=== PATIENT | female | born 1970 | race Caucasian/White ===

== ENCOUNTER → 2023-08-14 12:58 | Outpatient (REF) | payer BC, SELFPAY ==
[2023-08-14 16:00] LABS: Magnesium 2.3 mg/dl (1.6-2.3)
[2023-08-14 16:17] LABS: Vitamin D, 25-OH*** 41.6 ng/mL (30-80)
[2023-08-14 16:50] LABS: Vitamin B12 441 pg/ml (239-931)
== END ==
LOC: HWLAB 12:58
PROVIDERS: ATTENDING PHYSICIAN Physician Assistant Medical
DX: R53.83 Other fatigue (principal)
CPT/HCPCS: 36415; 82306; 82607; 83735

== ENCOUNTER → 2023-10-09 07:51 | Outpatient (REF) | payer BC, SELFPAY ==
[2023-10-09 09:20] LABS: % Eosinophils 3.7 % (0-6); % Immature Granulocytes 0.3 % (0-0.5); % Monocytes 6.9 % (1.7-9.3); % Neutrophils 58.1 % (42.2-75.2); Absolute Basophils 0.1 10^3/uL (0-0.2); Absolute Eosinophils 0.3 10^3/uL (0-0.7); Absolute Lymphocytes 2.6 10^3/uL (1.2-3.4); Absolute Monocytes 0.6 10^3/uL (0.1-0.6); Hematocrit 41.3 % (37.0-47.0); Hemoglobin 12.8 g/dL (12.0-16.0); Mean Corpuscular Hgb 27.1 pg (27.0-31.0); Mean Corpuscular Volume 87.3 fL (81.0-99.0); Nucleated Red Blood Cells % 0 %; Platelet Count 315 10^3/uL (130-400); Red Blood Cell Count 4.73 10^6/uL (4.20-5.40); Red Cell Dist. Width 13.8 % (11.5-14.5); White Blood Cell Count 8.7 10^3/uL (4.8-10.8)
[2023-10-09 10:13] LABS: ALT (SGPT) 22 U/L (0-35); AST (SGOT) 18 U/L (14-36); Albumin 4.4 g/dl (3.5-5.0); Alkaline Phosphatase 69 U/L (38-126); Blood Urea Nitrogen 25 mg/dl (7-17); Carbon Dioxide 29 mmol/L (22-30); Chloride 102 mmol/L (98-107); Glucose 245 mg/dl (70-99); HDL Cholesterol 49 mg/dl; LDL Cholesterol, Calculated 149 mg/dl; Potassium 4.5 mmol/L (3.5-5.1); Sodium 138 mmol/L (135-145); Total Bilirubin 0.5 mg/dl (0.2-1.3); Total Cholesterol 234 mg/dl (50-199); Total Protein 7.4 g/dl (6.3-8.2); Triglyceride 184 mg/dl (10-149); Very Low Density Lipoprotein 36 mg/dl (0-30); eGFR > 60.00
[2023-10-09 15:04] LABS: TSH 1.88 uIU/ml (0.47-4.68)
== END ==
LOC: REG 07:51
PROVIDERS: ATTENDING PHYSICIAN Internal Medicine Cardiovascular Disease; FAMILY PHYSICIAN Physician Assistant Medical
DX: E78.5 Hyperlipidemia, unspecified (principal); G47.33 Obstructive sleep apnea (adult) (pediatric); E11.9 Type 2 diabetes mellitus without complications
CPT/HCPCS: 36415; 80053; 80061; 83036; 84443; 85025

== ENCOUNTER 2023-11-17 09:36 | Emergency (ER) | payer BC, SELFPAY ==
[2023-11-17 09:37] VITALS: BP 114/74
--- NOTE | 2023-11-17 10:12 | ED.GENMED ---
History of Present Illness
<Abraham May PA-C - Last Filed: 11/17/23 12:24>
General
Chief Complaint: Headache
Source: patient
Exam Limitations: none
Time Seen by Provider: 11/17/23 10:07
History of Present Illness
History of Present Illness:
53-year-old female with history of migraines presents with ongoing headache over the past 2 to 3 days. Its intermittent and gradual in onset. There is associated paresthesias of her face and her arm mainly the left side but occasionally on the
right. No fever. She notes bilateral blurry vision and difficulty hearing as well. No rash. No chest pain. She was admitted several months ago here for similar symptoms and thought to have a TIA. No injury. She does not describe a sudden
onset severe headache. She tried Maxalt at home without relief
<Yahir Means MD - Last Filed: >
Travel History
Have you had any contact with someone who has COVID-19?: No
Do you have any symptoms of coronavirus? Fever > 100 degrees, chills, cough, shortness of breath, sore throat, loss of taste or smell, muscle aches, or headache?: No
Past History
<Yahir Means MD - Last Filed: >
Past History
ED Past Medical History: Asthma, GERD, Hypercholesterolemia, NIDDM, Psychiatric (depression) and Other (Palpitations, migraines, sciatica)
ED Past Surgical History: Cholecystectomy
Social History
Tobacco: Former smoker
Alcohol: None
Drug: None
Personal:
Living: with family
Employment: Employed
Family History
Family History: Hypertension, CAD and Other (SLE)
Phy Exam
<Abraham May PA-C - Last Filed: 11/17/23 12:24>
Physical Exam
Physical Exam:
General: Well-appearing female no acute respiratory distress
HEENT: Normocephalic atraumatic pupils equal round reactive to light external auditory canal is clear TMs normal
Heart: Regular rate and rhythm no murmurs
Lungs: Clear to auscultation bilaterally no wheezing
Neurologic exam: Alert and oriented x 3 no drift finger-nose intact extraocular motions intact. No facial asymmetry
Extremities: No cyanosis
Course
<Abraham May PA-C - Last Filed: 11/17/23 12:24>
Orders/Labs/Results
Orders:
Orders
11/17/23 09:43
Electrocardiogram (*1) Urgent
Reason for Study: Chest Pain
EKG- Treatment ONCE
11/17/23 10:17
CT Head W/o Iv Contrast Urgent
Comment:
Reason For Exam: headache, left sided weakness
11/17/23 10:35
0.9% Sodium Chloride 1000 ml [Nss] 1,000 ml IV BOLUS
Diphenhydramine [Benadryl] 25 mg IV NOW STA
Ketorolac [Toradol] 15 mg IV NOW STA
Prochlorperazine [Compazine] 10 mg IV NOW STA
11/17/23 11:00
Complete Blood Count/With Diff Urgent
Comprehensive Metabolic Panel Urgent
Lyme Progressive Urgent
Abnormal Lab Results
11/17/23
11:00
Absolute Monos (auto) 0.7 H 10^3/uL
(0.1-0.6)
Creatinine 0.5 L mg/dL
(0.6-1.0)
Glucose 124 H mg/dl
(70-99)
11/17/23 11:00
11/17/23 11:00
Vital Signs
Initial and Last Documented VS:
Initial Vital Signs
Temp Pulse Resp BP Pulse Ox
98.8 F 75 20 114/74 99
11/17/23 09:37 11/17/23 09:37 11/17/23 09:37 11/17/23 09:37 11/17/23 09:37
Last Documented Vital Signs
Temp Pulse Resp BP Pulse Ox
98.8 F 75 20 114/74 96
11/17/23 09:37 11/17/23 09:37 11/17/23 09:37 11/17/23 09:37 11/17/23 10:47
<Yahir Means MD - Last Filed: >
Orders/Labs/Results
Orders:
Orders
11/17/23 09:43
Electrocardiogram (*1) Urgent
Reason for Study: Chest Pain
EKG- Treatment ONCE
11/17/23 10:17
CT Head W/o Iv Contrast Urgent
Comment:
Reason For Exam: headache, left sided weakness
11/17/23 10:35
0.9% Sodium Chloride 1000 ml [Nss] 1,000 ml IV BOLUS
Diphenhydramine [Benadryl] 25 mg IV NOW STA
Ketorolac [Toradol] 15 mg IV NOW STA
Prochlorperazine [Compazine] 10 mg IV NOW STA
11/17/23 11:00
Complete Blood Count/With Diff Urgent
Comprehensive Metabolic Panel Urgent
Lyme Progressive Urgent
Abnormal Lab Results
11/17/23
11:00
Absolute Monos (auto) 0.7 H 10^3/uL
(0.1-0.6)
Creatinine 0.5 L mg/dL
(0.6-1.0)
Glucose 124 H mg/dl
(70-99)
11/17/23 11:00
11/17/23 11:00
Vital Signs
Initial and Last Documented VS:
Initial Vital Signs
Temp Pulse Resp BP Pulse Ox
98.8 F 75 20 114/74 99
11/17/23 09:37 11/17/23 09:37 11/17/23 09:37 11/17/23 09:37 11/17/23 09:37
Last Documented Vital Signs
Temp Pulse Resp BP Pulse Ox
98.8 F 75 20 114/74 96
11/17/23 09:37 11/17/23 09:37 11/17/23 09:37 11/17/23 09:37 11/17/23 10:47
<Abraham May PA-C - Last Filed: 11/17/23 12:24>
MDM/Problems Addressed
Differential Diagnosis Includes:
Headache. History of migraines. Some of this feels similar to her prior migraines. She does not describe a sudden onset headache. Will treat for migraine with Compazine Benadryl Toradol and fluids. Labs pending. Order CT secondary to the
paresthesias.
<Abraham May PA-C - Last Filed: 11/17/23 12:24>
*Critical Care Note
Total Time (30-74mins, 75-104mins- exclusive of procedures): Not Applicable
<Abraham May PA-C - Last Filed: 11/17/23 12:24>
Update Note
Update Note:
Patient noted with improvement of her headache. She is now resting comfortably. States her headache is improved. Labs reviewed without significant finding. CT head negative. Suspect migraine variant. Do not suspect CVA or intracranial
hemorrhage
ED Attending Note
<Yahir Means MD - Last Filed: >
-
Portions of this chart may have been created with voice recognition software.� Occasional wrong word or��sound alike� substitutions may have occurred due to the inherent limitations of voice recognition software.
Discharge Plan
Departure
Patient Disposition: Home (Routine Discharge)
Date of Disposition: 11/17/23
Time of Disposition: 12:23
Patient with high blood pressure during this ER visit?: No
Discharge Problem:
Headache
Instructions: Migraines (DC)
Prescriptions:
No Action
esomeprazole magnesium [Nexium] 40 MG capsule,delayed release(DR/EC)
40 mg PO QPM
furosemide [Lasix] 40 MG tablet
40 mg PO BID
levocetirizine [Xyzal] 5 MG tablet
5 mg PO QPM
montelukast [Singulair] 10 mg Tablet
10 mg PO QPM
lisinopril 5 mg Tablet
5 mg PO DAILY
insulin glargine [Lantus Solostar U-100 Insulin] 100 unit/mL (3 mL) Insulin Pen
25 unit SC QPM
fluticasone propion-salmeterol [Advair Diskus] 250-50 mcg/dose Blister With Device
1 inh INHALATION R BID
rizatriptan 10 mg Tablet
10 mg PO DAILYPRN PRN (Reason: migraines)
ondansetron 8 mg Tablet,Disintegrating
8 mg PO Q8HPRN PRN (Reason: nausea/vomiting)
pravastatin 80 mg Tablet
80 mg PO QPM
Visbiome 112.5 billion cell Capsule
1 cap PO DAILY
venlafaxine 225 mg Tablet Extended Release 24hr
225 mg PO DAILY
Victoza 2-Eddie 0.6 mg/0.1 mL (18 mg/3 mL) Pen Injector
1.2 mg SC DAILY
Trudhesa 0.725 mg/pump act. (4 mg/mL) Thomas,Non-Aerosol
1 spray INTRANASAL DAILYPRN PRN (Reason: migraine headaches)
Qulipta 60 mg Tablet
60 mg PO QPM
Farxiga 10 mg Tablet
10 mg PO DAILY
lorazepam 0.5 mg Tablet
0.5 mg PO DAILYPRN PRN (Reason: anxiety)
Patient Comments:
05/31/2023: last filled 05/29/23, 14 tabs [facility]
albuterol sulfate 90 mcg/actuation Hfa Aerosol Inhaler
2 puff INHALATION R Q4HPRN PRN (Reason: sob/wheezing)
cholecalciferol (vitamin D3) [Vitamin D3] 125 mcg (5,000 unit) Tablet
125 mcg PO DAILY
aspirin [Children's Aspirin] 81 mg Tablet,Chewable
81 mg PO DAILY 30 Days Qty: 30 0RF
Referrals:
Lisette Owens PA-C [Family Provider] -
Stand Alone Forms: Return to Work
Activity Restrictions/Additional Instructions:
Please continue current medication regimen. Return here for worsening symptoms otherwise follow-up with your family doctor
Interventions
Interventions:
*Risk Screen - Suicide Last Done: 11/17/23 09:37
*General Assessment Last Done: 11/17/23 09:37
*Neglect/Abuse Screening Last Done: 11/17/23 09:37
ED- Fall Risk Assessment Last Done: 11/17/23 10:47
*ED COVID-19 Vaccine History Last Done: 11/17/23 10:59
ED- Neurological Assessment Last Done: 11/17/23 10:47
Discharge Date and Time
Print Language: CHINESE
[2023-11-17 10:47] VITALS: BMI 42.9
[2023-11-17 11:00] VITALS: BP 122/69
[2023-11-17] MEDS: COMPAZINE 10 MG IV (11:04)
[2023-11-17] MEDS: BENADRYL 25 MG IV (11:04)
[2023-11-17] MEDS: NSS 1000 IV (11:05)
[2023-11-17] MEDS: TORADOL 15 MG IV (11:05)
[2023-11-17 11:07] LABS: % Basophils 0.7 % (0-2); % Eosinophils 2.5 % (0-6); % Immature Granulocytes 0.2 % (0-0.5); % Lymphocytes 28.7 % (20.5-51.1); % Monocytes 8.2 % (1.7-9.3); % Neutrophils 59.7 % (42.2-75.2); Absolute Basophils 0.1 10^3/uL (0-0.2); Absolute Eosinophils 0.2 10^3/uL (0-0.7); Absolute Lymphocytes 2.6 10^3/uL (1.2-3.4); Absolute Monocytes 0.7 10^3/uL (0.1-0.6); Absolute Neutrophils 5.4 10^3/uL (1.4-6.5); Hematocrit 37.9 % (37.0-47.0); Hemoglobin 12.9 g/dL (12.0-16.0); Mean Corpuscular Hgb 27.7 pg (27.0-31.0); Mean Corpuscular Volume 81.3 fL (81.0-99.0); Mean Platelet Volume 9.1 fL (7.4-10.4); Nucleated Red Blood Cells % 0 %; Platelet Count 312 10^3/uL (130-400); Red Blood Cell Count 4.66 10^6/uL (4.20-5.40); Red Cell Dist. Width 14.2 % (11.5-14.5)
[2023-11-17 11:26] LABS: ALT (SGPT) 28 U/L (0-35); AST (SGOT) 25 U/L (14-36); Albumin 4.1 g/dl (3.5-5.0); Alkaline Phosphatase 63 U/L (38-126); Blood Urea Nitrogen 15 mg/dl (7-17); Calcium 9.6 mg/dl (8.4-10.2); Carbon Dioxide 29 mmol/L (22-30); Chloride 101 mmol/L (98-107); Estimated Creatinine Clearance > 125 ml/min; Glucose 124 mg/dl (70-99); Potassium 3.7 mmol/L (3.5-5.1); Sodium 135 mmol/L (135-145); Total Bilirubin 0.4 mg/dl (0.2-1.3); Total Protein 6.9 g/dl (6.3-8.2); eGFR > 60.00
[2023-11-17 12:49] VITALS: BP 108/67
--- NOTE | 2023-11-17 12:52 | EDRN ---
Reviewed discharge instructions with patient. Verbalized understanding. Ambulated with steady gait to the lobby.
[2023-11-19 15:03] LABS: Lyme Antibody Screen, EIA Negative (Negative)
== END 2023-11-17 12:50 | disposition home or self-care (01) ==
LOC: EMR 09:36
PROVIDERS: Physician Assistant; EMERGENCY PHYSICIAN Emergency Medicine; FAMILY PHYSICIAN Physician Assistant Medical
DX: R51.9 Headache, unspecified (principal)
CPT/HCPCS: 99284; 96374; 96375; 96361; 70450; 80053; 85025; 86618; 93005

== ENCOUNTER → 2023-11-19 12:39 | Outpatient (REF) | payer BC, SELFPAY | LOC: RAD 12:39 | PROVIDERS: ATTENDING PHYSICIAN Physician Assistant Medical | DX: M25.572 Pain in left ankle and joints of left foot (principal) | CPT/HCPCS: 73610 ==

== ENCOUNTER → 2023-12-24 07:34 | Outpatient (REF) | payer BC, SELFPAY ==
[2023-12-24 09:58] LABS: % Eosinophils 3.1 % (0-6); % Immature Granulocytes 0.1 % (0-0.5); % Lymphocytes 33.9 % (20.5-51.1); % Monocytes 7.2 % (1.7-9.3); % Neutrophils 54.7 % (42.2-75.2); Absolute Basophils 0.1 10^3/uL (0-0.2); Absolute Eosinophils 0.3 10^3/uL (0-0.7); Absolute Lymphocytes 2.7 10^3/uL (1.2-3.4); Absolute Monocytes 0.6 10^3/uL (0.1-0.6); Absolute Neutrophils 4.4 10^3/uL (1.4-6.5); Hematocrit 38.6 % (37.0-47.0); Hemoglobin 12.4 g/dL (12.0-16.0); Mean Corp Hgb Conc. 32.1 g/dL (33.0-37.0); Mean Corpuscular Hgb 27.7 pg (27.0-31.0); Mean Corpuscular Volume 86.2 fL (81.0-99.0); Mean Platelet Volume 9.7 fL (7.4-10.4); Nucleated Red Blood Cells % 0 %; Platelet Count 327 10^3/uL (130-400); Red Blood Cell Count 4.48 10^6/uL (4.20-5.40); Red Cell Dist. Width 14.5 % (11.5-14.5); White Blood Cell Count 8.1 10^3/uL (4.8-10.8)
[2023-12-24 10:47] LABS: ALT (SGPT) 23 U/L (0-35); AST (SGOT) 20 U/L (14-36); Albumin 4.3 g/dl (3.5-5.0); Alkaline Phosphatase 62 U/L (38-126); Blood Urea Nitrogen 18 mg/dl (7-17); Calcium 9.7 mg/dl (8.4-10.2); Carbon Dioxide 28 mmol/L (22-30); Chloride 101 mmol/L (98-107); Glucose 208 mg/dl (70-99); Potassium 4.3 mmol/L (3.5-5.1); Sodium 140 mmol/L (135-145); Total Bilirubin 0.4 mg/dl (0.2-1.3); eGFR > 60.00
[2023-12-24 12:52] LABS: Glycohemoglobin (HgbA1c) 7.5 % (4.0-5.6)
== END ==
LOC: HWLAB 07:34
PROVIDERS: ATTENDING PHYSICIAN Physician Assistant Medical
DX: R07.81 Pleurodynia (principal); R73.09 Other abnormal glucose
CPT/HCPCS: 36415; 71101; 80053; 83036; 85025

== ENCOUNTER → 2024-01-27 08:03 | Outpatient (REF) | payer BC, SELFPAY ==
[2024-01-27 09:57] LABS: HDL Cholesterol 53 mg/dl; LDL Cholesterol, Calculated 103 mg/dl; Total Cholesterol 195 mg/dl (50-199); Triglyceride 195 mg/dl (10-149); Very Low Density Lipoprotein 39 mg/dl (0-30)
== END ==
LOC: REG 08:03
PROVIDERS: ATTENDING PHYSICIAN Physician Assistant Medical; FAMILY PHYSICIAN Internal Medicine Cardiovascular Disease
DX: R07.81 Pleurodynia (principal)
CPT/HCPCS: 36415; 80061

== ENCOUNTER → 2024-02-13 10:53 | Outpatient (REF) | payer BC, SELFPAY ==
[2024-02-13 12:27] LABS: Urine Albumin Negative (Neg - Trace); Urine Bilirubin Negative (Negative); Urine Character Clear (Clear); Urine Color Yellow; Urine Glucose 3+ (Negative); Urine Ketone Negative (Negative); Urine Leukocyte Trace (Negative); Urine Nitrite Negative (Negative); Urine Occult Blood Negative (Negative); Urine Specific Gravity 1.005 (<1.030); Urine Urobilinogen Negative (Neg - 1+)
[2024-02-13 12:57] LABS: Urine Bacteria Few (Negative); Urine Red Blood Cell 0-2 /HPF (0-2); Urine Squamous Cell 21-25 /LPF (Few); Urine White Cell 0-2 /HPF (0-5)
== END ==
LOC: REG 10:53
PROVIDERS: ATTENDING PHYSICIAN Student in an Organized Health Care Education/Training Program
DX: R10.2 Pelvic and perineal pain (principal)
CPT/HCPCS: 81003; 81015

== ENCOUNTER 2024-04-04 18:59 | Emergency (ER) | payer BC, SELFPAY ==
[2024-04-04 19:02] VITALS: BP 146/100
[2024-04-04 19:23] LABS: Urine Albumin Negative (Neg - Trace); Urine Bilirubin Negative (Negative); Urine Character Clear (Clear); Urine Color Yellow; Urine Glucose 3+ (Negative); Urine Ketone Negative (Negative); Urine Leukocyte Negative (Negative); Urine Nitrite Negative (Negative); Urine Occult Blood Negative (Negative); Urine Specific Gravity 1.015 (<1.030); Urine Urobilinogen Negative (Neg - 1+); Urine pH 6.5 (5.0-9.0)
[2024-04-04 19:26] LABS: Hematocrit 36.6 % (37.0-47.0); Hemoglobin 12.5 g/dL (12.0-16.0); Mean Corp Hgb Conc. 34.2 g/dL (33.0-37.0); Mean Corpuscular Hgb 28.1 pg (27.0-31.0); Mean Corpuscular Volume 82.2 fL (81.0-99.0); Mean Platelet Volume 9.3 fL (7.4-10.4); Platelet Count 300 10^3/uL (130-400); Red Blood Cell Count 4.45 10^6/uL (4.20-5.40); Red Cell Dist. Width 13.6 % (11.5-14.5); White Blood Cell Count 9.7 10^3/uL (4.8-10.8)
[2024-04-04 19:42] LABS: ALT (SGPT) 21 U/L (0-35); AST (SGOT) 21 U/L (14-36); Albumin 4.4 g/dl (3.5-5.0); Alkaline Phosphatase 66 U/L (38-126); Blood Urea Nitrogen 19 mg/dl (7-17); Calcium 9.3 mg/dl (8.4-10.2); Carbon Dioxide 28 mmol/L (22-30); Chloride 101 mmol/L (98-107); Glucose 191 mg/dl (70-99); Potassium 3.9 mmol/L (3.5-5.1); Sodium 142 mmol/L (135-145); Total Bilirubin 0.3 mg/dl (0.2-1.3); Total Protein 6.9 g/dl (6.3-8.2); eGFR > 60.00
[2024-04-04 19:43] LABS: % Basophils 0.8 % (0-2); % Eosinophils 2.1 % (0-6); % Immature Granulocytes 0.3 % (0-0.5); % Lymphocytes 33.5 % (20.5-51.1); % Monocytes 7.6 % (1.7-9.3); % Neutrophils 55.7 % (42.2-75.2); Absolute Basophils 0.1 10^3/uL (0-0.2); Absolute Eosinophils 0.2 10^3/uL (0-0.7); Absolute Lymphocytes 3.3 10^3/uL (1.2-3.4); Absolute Monocytes 0.7 10^3/uL (0.1-0.6); Absolute Neutrophils 5.4 10^3/uL (1.4-6.5); Nucleated Red Blood Cells % 0 %
--- NOTE | 2024-04-04 20:01 | ED.GENMED ---
History of Present Illness
General
Chief Complaint: Urinary Symptoms
Time Seen by Provider: 04/04/24 20:01
History of Present Illness
History of Present Illness:
HPI: Patient presents with intermittent UTI type of symptoms over the past month. Today she had increased vomiting, back pain. Pain in the back worsens with position changes. The nausea and vomiting is not necessarily new. He has Zofran at home.
She currently does not have nausea. The back pain is described as the left side near the left kidney area/left flank area.
EXAM:
GENERAL: Well appearing in no distress, elevated BMI noted
HEENT: Moist oral mucosa
CARDIOVASCULAR: No murmurs, normal heart rate on my examination but arrived slightly tachycardic, regular rhythm, No chest wall tenderness
PULMONARY: No respiratory distress, breath sounds are clear and equal
ABDOMEN: Soft with no peritoneal signs, no tenderness
BACK: There is no significant CVA tenderness
NEUROLOGIC: Excellent strength all extremities, no coordination deficits
PSYCHIATRIC: Appropriate mental status, normal insight and judgement
EXTREMITIES: Nontender, no edema, moves all extremities equally
SKIN: No rash, no lesions
TIME OF INITIAL ENCOUNTER: 8:10 PM
NUMBER AND COMPLEXITY OF PROBLEMS ADDRESSED AT THE ENCOUNTER
� Chronic conditions affecting care: Back pain, migraines, asthma, GERD, hyperlipidemia, IDDM, anxiety/depression
� Acute Exacerbation and/or Progression of Chronic Illness: This is an acute problem
� Differential Diagnosis includes: Poorly controlled diabetes, UTI, pyelonephritis
AMOUNT AND/OR COMPLEXITY OF DATA TO BE REVIEWED AND ANALYZED
� I performed an independent evaluation of and my interpretation is:
EKG:
CT:
X-rays:
Laboratory Studies: White count 9.7, chemistries unremarkable except for glucose of 191, urinalysis shows glucose but no evidence of infection
Other:
� Review of other/old records: The patient was admitted here 1 year ago with chest pain/shortness of breath along with increasing confusion
� Clinical information was obtained by an independent historian: None needed
� Prescriptions/Medications Considered but not given:
� Further testing considered but not performed: Considered imaging however the patient's pain is most consistent with musculoskeletal etiology and she appears comfortable
RISK OF COMPLICATIONS AND/OR MORBIDITY OR MORTALITY OF PATIENT MANAGEMENT
� Social determinants of health affecting care: Lives at home
� Discussion with other providers:
� Escalation of care including admission/observation vs risk of discharge considered: The patient symptoms of '[place]', urinary frequency, thirst are more likely consistent with poorly controlled diabetes. There is no
evidence of infection currently. Work note also given at her request. I have told her to increase the Lantus from 30 units to 34 units nightly and to speak to her education nurse tomorrow.
Past History
Past History
ED Past Medical History: Asthma, GERD, Hypercholesterolemia, NIDDM, Psychiatric (depression) and Other (Palpitations, migraines, sciatica)
ED Past Surgical History: Cholecystectomy
Social History
Tobacco: Former smoker
Alcohol: None
Drug: None
Personal:
Living: with family
Employment: Employed
Family History
Family History: Hypertension, CAD and Other (SLE)
Phy Exam
Physical Exam
Physical Exam:
See HPI
Course
Orders/Labs/Results
Orders:
Orders
04/04/24 19:05
Urinalysis Reflex To Culture Urgent
Date Specimen was Collected: 04/04/24
Time Specimen was Collected: 19:06
04/04/24 19:10
Complete Blood Count/With Diff Urgent
Comprehensive Metabolic Panel Urgent
Abnormal Lab Results
04/04/24 04/04/24
19:05 19:10
Hct 36.6 L %
(37.0-47.0)
Absolute Monos (auto) 0.7 H 10^3/uL
(0.1-0.6)
BUN 19 H mg/dl
(7-17)
Glucose 191 H mg/dl
(70-99)
Urine Glucose 3+ A
(Negative)
04/04/24 19:10
04/04/24 19:10
Vital Signs
Initial and Last Documented VS:
Initial Vital Signs
Temp Pulse Resp BP Pulse Ox
98.3 F 104 22 146/100 98
04/04/24 19:02 04/04/24 19:02 04/04/24 19:02 04/04/24 19:02 04/04/24 19:02
Last Documented Vital Signs
Temp Pulse Resp BP Pulse Ox
98.3 F 104 22 146/100 98
04/04/24 19:02 04/04/24 19:02 04/04/24 19:02 04/04/24 19:02 04/04/24 19:02
*Critical Care Note
Total Time (30-74mins, 75-104mins- exclusive of procedures): Not Applicable
ED Attending Note
-
Portions of this chart may have been created with voice recognition software.� Occasional wrong word or��sound alike� substitutions may have occurred due to the inherent limitations of voice recognition software.
Discharge Plan
Departure
Patient Disposition: Home (Routine Discharge)
Date of Disposition: 04/04/24
Time of Disposition: 20:11
Patient with high blood pressure during this ER visit?: Yes
Discharge Problem:
Poor control type I diabetes mellitus
Prescriptions:
No Action
esomeprazole magnesium [Nexium] 40 MG capsule,delayed release(DR/EC)
40 mg PO QPM
furosemide [Lasix] 40 MG tablet
40 mg PO BID
levocetirizine [Xyzal] 5 MG tablet
5 mg PO QPM
montelukast [Singulair] 10 mg Tablet
10 mg PO QPM
lisinopril 5 mg Tablet
5 mg PO DAILY
insulin glargine [Lantus Solostar U-100 Insulin] 100 unit/mL (3 mL) Insulin Pen
25 unit SC QPM
fluticasone propion-salmeterol [Advair Diskus] 250-50 mcg/dose Blister With Device
1 inh INHALATION R BID
rizatriptan 10 mg Tablet
10 mg PO DAILYPRN PRN (Reason: migraines)
ondansetron 8 mg Tablet,Disintegrating
8 mg PO Q8HPRN PRN (Reason: nausea/vomiting)
pravastatin 80 mg Tablet
80 mg PO QPM
Visbiome 112.5 billion cell Capsule
1 cap PO DAILY
venlafaxine 225 mg Tablet Extended Release 24hr
225 mg PO DAILY
Victoza 2-Eddie 0.6 mg/0.1 mL (18 mg/3 mL) Pen Injector
1.2 mg SC DAILY
Trudhesa 0.725 mg/pump act. (4 mg/mL) [place],Non-Aerosol
1 spray INTRANASAL DAILYPRN PRN (Reason: migraine headaches)
Qulipta 60 mg Tablet
60 mg PO QPM
Farxiga 10 mg Tablet
10 mg PO DAILY
lorazepam 0.5 mg Tablet
0.5 mg PO DAILYPRN PRN (Reason: anxiety)
Patient Comments:
05/31/2023: last filled 05/29/23, [facility]
albuterol sulfate 90 mcg/actuation Hfa Aerosol Inhaler
2 puff INHALATION R Q4HPRN PRN (Reason: sob/wheezing)
cholecalciferol (vitamin D3) [Vitamin D3] 125 mcg (5,000 unit) Tablet
125 mcg PO DAILY
aspirin [Children's Aspirin] 81 mg Tablet,Chewable
81 mg PO DAILY 30 Days Qty: 30 0RF
Stand Alone Forms: Return to Work
Activity Restrictions/Additional Instructions:
I suspect that some of your symptoms are related to the elevated blood sugar readings. We do not see any signs of a urinary tract infection/kidney infection based on your urinalysis and white blood cell count. Your white blood cell count is
normal. Your kidney function is normal. Consider taking Tylenol and/or Motrin for back pain. I suspect the back pain is musculoskeletal in nature. I recommend that you call your education nurse for further recommendations. You could go up to 34
units of Lantus at nighttime.
Interventions
Interventions:
*Risk Screen - Suicide Last Done: 04/04/24 19:02
*General Assessment Last Done: 04/04/24 20:03
*Neglect/Abuse Screening Last Done: 04/04/24 19:02
ED- Fall Risk Assessment Last Done: 04/04/24 20:16
*ED COVID-19 Vaccine History Last Done: 04/04/24 20:03
*Nursing Disposition Last Done: 04/04/24 20:16
ED-Female Genitourinary Assessment Last Done: 04/04/24 20:03
Discharge Date and Time
Print Language: ESTONIAN
[2024-04-04 20:03] VITALS: BMI 45.5
[2024-04-04 20:11] VITALS: BP 133/77
== END 2024-04-04 20:27 | disposition home or self-care (01) ==
LOC: EMR 18:59
PROVIDERS: Emergency Medicine; EMERGENCY PHYSICIAN Emergency Medicine
DX: E10.9 Type 1 diabetes mellitus without complications (principal); Z79.4 Long term (current) use of insulin; E78.00 Pure hypercholesterolemia, unspecified; J45.909 Unspecified asthma, uncomplicated; K21.9 Gastro-esophageal reflux disease without esophagitis; Z87.891 Personal history of nicotine dependence; Z90.49 Acquired absence of other specified parts of digestive tract
CPT/HCPCS: 99283; 80053; 81003; 85025

== ENCOUNTER → 2024-04-26 12:15 | Outpatient (REF) | payer BC, SELFPAY ==
[2024-04-26 15:30] LABS: Uric Acid 6.4 mg/dl (2.5-6.2)
[2024-04-26 15:46] LABS: Erythrocyte Sed Rate 26 mm/hour (0-20)
[2024-04-28 17:30] LABS: Rheumatoid Agglutinin Less Than 10 IU (<10 IU)
[2024-04-28 23:05] LABS: CCP Antibody IgG/IgA 6 Units (0-19)
[2024-04-28 23:37] LABS: ANA, IgG Reflex to HEp-2 None Detected (None Detected)
== END ==
LOC: REG 12:15
PROVIDERS: ATTENDING PHYSICIAN Physician Assistant; FAMILY PHYSICIAN Physician Assistant Medical
DX: M10.9 Gout, unspecified (principal); M25.50 Pain in unspecified joint; M35.00 Sjogren syndrome, unspecified; R53.83 Other fatigue
CPT/HCPCS: 36415; 84550; 85652; 86038; 86140; 86200; 86235; 86430

== ENCOUNTER → 2024-05-09 16:07 | Outpatient (REF) | payer BC, SELFPAY ==
[2024-05-10 17:46] LABS: Urine Albumin Negative (Neg - Trace); Urine Bilirubin Negative (Negative); Urine Character Clear (Clear); Urine Color Yellow; Urine Glucose 3+ (Negative); Urine Ketone Negative (Negative); Urine Leukocyte Negative (Negative); Urine Nitrite Negative (Negative); Urine Occult Blood Negative (Negative); Urine Urobilinogen Negative (Neg - 1+); Urine pH 6.5 (5.0-9.0)
== END ==
LOC: CLAB 16:07
PROVIDERS: ATTENDING PHYSICIAN Physician Assistant Medical
DX: N89.8 Other specified noninflammatory disorders of vagina (principal)
CPT/HCPCS: 81003; 81513; 87102; 87481; 87661

== ENCOUNTER 2024-06-22 06:00 | Observation (INO) | payer BC, SELFPAY ==
[2024-06-22] VITALS (12 sets, daily range): BP systolic 101–134; BP diastolic 59–80; BMI 46.1
[2024-06-22 01:41] LABS: % Basophils 0.8 % (0-2); % Immature Granulocytes 0.1 % (0-0.5); % Lymphocytes 34.2 % (20.5-51.1); % Monocytes 7.7 % (1.7-9.3); % Neutrophils 55.2 % (42.2-75.2); Absolute Basophils 0.1 10^3/uL (0-0.2); Absolute Eosinophils 0.2 10^3/uL (0-0.7); Absolute Lymphocytes 3.2 10^3/uL (1.2-3.4); Absolute Monocytes 0.7 10^3/uL (0.1-0.6); Absolute Neutrophils 5.2 10^3/uL (1.4-6.5); Hematocrit 40.7 % (37.0-47.0); Hemoglobin 13.2 g/dL (12.0-16.0); Mean Corp Hgb Conc. 32.4 g/dL (33.0-37.0); Mean Corpuscular Hgb 27.7 pg (27.0-31.0); Mean Corpuscular Volume 85.3 fL (81.0-99.0); Mean Platelet Volume 9.3 fL (7.4-10.4); Nucleated Red Blood Cells % 0 %; Platelet Count 289 10^3/uL (130-400); Red Blood Cell Count 4.77 10^6/uL (4.20-5.40); Red Cell Dist. Width 13.9 % (11.5-14.5); White Blood Cell Count 9.5 10^3/uL (4.8-10.8)
[2024-06-22 02:06] LABS: ALT (SGPT) 24 U/L (0-35); AST (SGOT) 19 U/L (14-36); Albumin 4.3 g/dl (3.5-5.0); Alkaline Phosphatase 58 U/L (38-126); Blood Urea Nitrogen 18 mg/dl (7-17); Calcium 9.4 mg/dl (8.4-10.2); Carbon Dioxide 28 mmol/L (22-30); Chloride 98 mmol/L (98-107); Glucose 193 mg/dl (70-99); Potassium 3.6 mmol/L (3.5-5.1); Sodium 137 mmol/L (135-145); Total Bilirubin 0.3 mg/dl (0.2-1.3); eGFR > 60.00
--- NOTE | 2024-06-22 02:40 | ED.CVA ---
History of Present Illness
<RIK Pope - Last Filed: 06/22/24 05:52>
General
Chief Complaint: CVA/TIA Symptoms
Source: patient
Time Seen by Provider: 06/22/24 02:28
Nursing documentation reviewed up to this point in time: agreed with
Onset of Stroke Symptoms
Onset of symptoms known: Yes
Date of onset of symptoms: 06/21/24
History of Present Illness
History of Present Illness:
Pt is a 53 yo F who presents to the emergency department for left side face numbness, left eye blurry vision, and left arm numbness. Pt states that a few days ago she felt off and a tingling-like sensation at the top of her head. She states that she
came to the ED due to having the onset of left face and arm numbness and blurry vision of the left eye tonight. Pt denies a headache, changes in gait, slurring of speech, right sided arm and face weakness, abdominal pain, weakness or pain in the
lower extremities.
Pt states that about a year ago she was seen by medical provider for TIA-like symptoms. Pt reports that her symptoms at the time were due to a migraine. She states that during that time she had stammer speech. She states that she was on daily
aspirin for about 8 months after being seen but is no longer taking it. Pt denies on being any blood thinners.
Past History
<RIK Pope - Last Filed: 06/22/24 05:52>
Past History
ED Past Medical History: Asthma, GERD, Hypercholesterolemia, NIDDM, Psychiatric (depression) and Other (Palpitations, migraines, sciatica)
ED Past Surgical History: Cholecystectomy
Social History
Tobacco: Former smoker
Alcohol: None
Drug: None
Personal:
Living: with family
Employment: Employed
Family History
Family History: Hypertension, CAD and Other (SLE)
Review of Systems
<Michelle Corrales, [facility] - Last Filed: 06/22/24 05:52>
Review of Systems
Allergies reviewed?: Yes
Constitutional: Reports no symptoms
EENT: Reports other (left eye blurry)
Respiratory: Reports no symptoms
Cardiac: Reports no symptoms
ABD/GI: Reports no symptoms
Neurological: Reports weakness (In left arm and left side of face) and numbness
Phy Exam
<Michelle Corrales, [facility] - Last Filed: 06/22/24 05:52>
General Physical Exam
General Presentation: no apparent distress
General age: appears stated age
General Skin: warm
General Habitus: normal
General Mental: alert
General Hydration: appears well hydrated
Cardiovascular Exam
Cardiovascular Exam: regular rate/rhythm
Pulmonary Exam
Pulmonary Exam: lungs clear
Gastrointestinal Exam
Gastrointestinal Exam: normal bowel sounds, non tender, soft and non distended
Neurological Exam
Neurological Exam: alert, oriented x3, no motor deficits, speech normal, facial droop (right side uneven when smile ) and sensory deficit (decreased sensation of left arm and left face )
Course
<Michelle Corrales, [facility] - Last Filed: 06/22/24 05:52>
Orders/Labs/Results
Orders:
Orders
06/22/24 01:31
CMP [Comprehensive Metabolic Panel] Urgent
Complete Blood Count/With Diff Urgent
06/22/24 02:26
CT Head Angio W/wo Iv Contrast Urgent
Comment:
Reason For Exam: left sided blurry vision, left hand tingling
06/22/24 04:53
Ondansetron Injectable [Zofran] 4 mg .ROUTE .STK-MED ONE
06/22/24 04:54
Ondansetron Injectable [Zofran] 4 mg IV NOW STA
06/22/24 05:00
Flush (0.9% Sodium Chloride) [Flush (Nss)] See Dose Instructions IV PER PROTOCOL
06/22/24 05:41
Admit/Transfer Patient As Directed
Co-Sign Provider:
Level of Care: Observation services
Assign to:: Telemetry
Physician / Group: hospitalist
Diagnosis: tia
Reason for Telemetry: CVA/TIA
Date to Stop Telemetry: 06/25/24
Time to Stop Telemetry: 11:00
PRN Pain Medication Management As Directed
May give lesser potent ordered pain med per pt: Yes
preference::
Protocol:: Medication orders for pain may be administered in a
manner that supports deferring to patient preference
when the pt is:
- Requesting an ordered lesser potent pain medication.
Least to most potent pain medications are defined
as: acetaminophen < NSAID < tramadol < opioids
(morphine, oxycodone, hydromorphone).
- Requesting a lesser dose of the same medication IF
ORDERED.
- Requesting a less intrusive route of administration
if both routes are prescribed by the provider (PO <
IV).
06/22/24 05:43
Code Status As Directed
Resuscitation Status: Full Code
06/25/24 11:00
DC Protocol for Telemetry ONCE
Abnormal Lab Results
06/22/24
01:31
MCHC 32.4 L g/dL
(33.0-37.0)
Absolute Monos (auto) 0.7 H 10^3/uL
(0.1-0.6)
BUN 18 H mg/dl
(7-17)
Glucose 193 H mg/dl
(70-99)
06/22/24 01:31
06/22/24 01:31
Vital Signs
Initial and Last Documented VS:
Initial Vital Signs
Temp Pulse Resp BP Pulse Ox
97.6 F 70 18 134/80 97
06/22/24 00:35 06/22/24 00:35 06/22/24 00:35 06/22/24 00:35 06/22/24 00:35
Last Documented Vital Signs
Temp Pulse Resp BP Pulse Ox
97.6 F 70 18 133/61 96
06/22/24 00:35 06/22/24 00:35 06/22/24 00:35 06/22/24 04:38 06/22/24 05:00
<Jim Hernandez, DO - Last Filed: 06/22/24 04:31>
Orders/Labs/Results
Orders:
Orders
06/22/24 01:31
CMP [Comprehensive Metabolic Panel] Urgent
Complete Blood Count/With Diff Urgent
06/22/24 02:26
CT Head Angio W/wo Iv Contrast Urgent
Comment:
Reason For Exam: left sided blurry vision, left hand tingling
06/22/24 04:53
Ondansetron Injectable [Zofran] 4 mg .ROUTE .STK-MED ONE
06/22/24 04:54
Ondansetron Injectable [Zofran] 4 mg IV NOW STA
06/22/24 05:00
Flush (0.9% Sodium Chloride) [Flush (Nss)] See Dose Instructions IV PER PROTOCOL
06/22/24 05:41
Admit/Transfer Patient As Directed
Co-Sign Provider:
Level of Care: Observation services
Assign to:: Telemetry
Physician / Group: hospitalist
Diagnosis: tia
Reason for Telemetry: CVA/TIA
Date to Stop Telemetry: 06/25/24
Time to Stop Telemetry: 11:00
PRN Pain Medication Management As Directed
May give lesser potent ordered pain med per pt: Yes
preference::
Protocol:: Medication orders for pain may be administered in a
manner that supports deferring to patient preference
when the pt is:
- Requesting an ordered lesser potent pain medication.
Least to most potent pain medications are defined
as: acetaminophen < NSAID < tramadol < opioids
(morphine, oxycodone, hydromorphone).
- Requesting a lesser dose of the same medication IF
ORDERED.
- Requesting a less intrusive route of administration
if both routes are prescribed by the provider (PO <
IV).
06/22/24 05:43
Code Status As Directed
Resuscitation Status: Full Code
06/25/24 11:00
DC Protocol for Telemetry ONCE
Abnormal Lab Results
06/22/24
01:31
MCHC 32.4 L g/dL
(33.0-37.0)
Absolute Monos (auto) 0.7 H 10^3/uL
(0.1-0.6)
BUN 18 H mg/dl
(7-17)
Glucose 193 H mg/dl
(70-99)
06/22/24 01:31
06/22/24 01:31
Vital Signs
Initial and Last Documented VS:
Initial Vital Signs
Temp Pulse Resp BP Pulse Ox
97.6 F 70 18 134/80 97
06/22/24 00:35 06/22/24 00:35 06/22/24 00:35 06/22/24 00:35 06/22/24 00:35
Last Documented Vital Signs
Temp Pulse Resp BP Pulse Ox
97.6 F 70 18 133/61 96
06/22/24 00:35 06/22/24 00:35 06/22/24 00:35 06/22/24 04:38 06/22/24 05:00
<RIK Pope - Last Filed: 06/22/24 05:52>
MDM/Problems Addressed
Differential Diagnosis Includes:
TIA, migraine
<RIK Pope - Last Filed: 06/22/24 05:52>
*Critical Care Note
Total Time (30-74mins, 75-104mins- exclusive of procedures): Not Applicable
<Jim Hernandez DO - Last Filed: 06/22/24 04:31>
Update Note
Update Note:
CT head without IV contrast
CTA head with IV contrast
IMPRESSION:
CT HEAD: No hemorrhage or other acute intracranial abnormality. Consider MRI for further assessment if clinically indicated.
CTA HEAD: The major arteries of the head appear patent and unremarkable.
Finalized at 4:16 AM EST
ED Attending Note
<RIK Pope - Last Filed: 06/22/24 05:52>
-
Portions of this chart may have been created with voice recognition software.� Occasional wrong word or��sound alike� substitutions may have occurred due to the inherent limitations of voice recognition software.
<DO Candace Rangel Last Filed: 06/22/24 04:31>
ED Attending Note
Patient seen and examined by attending physician: Yes
I performed the substantive portion of visit, reviewed & personally made and approve the management plan that is documented in note by myself or CINDA.: Yes
ED Attending Note:
Pleasant 53-year-old female with left-sided hand tingling, feeling of cold in her hands and numbness on the left side of her face. She states it began yesterday and has been worsening. Patient states that she followed with Dr. Paige after a
similar but less severe events approximately a year and a half ago. At that time, upon discharge, patient did follow-up with neurology and cardiology. States that she was on no anticoagulation. She was on aspirin for several months after the
initial event but has since stopped. Patient denies chest pain or shortness of breath.
Discharge Plan
Departure
Patient Disposition: Admit
Date of Disposition: 06/22/24
Time of Disposition: 04:28
Presentation/result/management discussed w/ accepting MD/DO: Hospitalist
Discharge Problem:
Facial weakness, TIA (transient ischemic attack)
Instructions: Transient Ischemic Attack (DC), Vertigo (a Type of Dizziness) (DC)
Prescriptions:
No Action
esomeprazole magnesium [Nexium] 40 MG capsule,delayed release(DR/EC)
40 mg PO QPM
furosemide [Lasix] 40 MG tablet
40 mg PO BID
levocetirizine [Xyzal] 5 MG tablet
5 mg PO QPM
montelukast [Singulair] 10 mg Tablet
10 mg PO QPM
lisinopril 5 mg Tablet
5 mg PO DAILY
insulin glargine [Lantus Solostar U-100 Insulin] 100 unit/mL (3 mL) Insulin Pen
25 unit SC QPM
fluticasone propion-salmeterol [Advair Diskus] 250-50 mcg/dose Blister With Device
1 inh INHALATION R BID
rizatriptan 10 mg Tablet
10 mg PO DAILYPRN PRN (Reason: migraines)
ondansetron 8 mg Tablet,Disintegrating
8 mg PO Q8HPRN PRN (Reason: nausea/vomiting)
pravastatin 80 mg Tablet
80 mg PO QPM
Visbiome 112.5 billion cell Capsule
1 cap PO DAILY
venlafaxine 225 mg Tablet Extended Release 24hr
225 mg PO DAILY
Victoza 2-Eddie 0.6 mg/0.1 mL (18 mg/3 mL) Pen Injector
1.2 mg SC DAILY
Trudhesa 0.725 mg/pump act. (4 mg/mL) [place],Non-Aerosol
1 spray INTRANASAL DAILYPRN PRN (Reason: migraine headaches)
Qulipta 60 mg Tablet
60 mg PO QPM
Farxiga 10 mg Tablet
10 mg PO DAILY
lorazepam 0.5 mg Tablet
0.5 mg PO DAILYPRN PRN (Reason: anxiety)
Patient Comments:
05/31/2023: last filled 05/29/23, 14 tabs for 14 days from [facility]
albuterol sulfate 90 mcg/actuation Hfa Aerosol Inhaler
2 puff INHALATION R Q4HPRN PRN (Reason: sob/wheezing)
cholecalciferol (vitamin D3) [Vitamin D3] 125 mcg (5,000 unit) Tablet
125 mcg PO DAILY
aspirin [Children's Aspirin] 81 mg Tablet,Chewable
81 mg PO DAILY 30 Days Qty: 30 0RF
Referrals:
Lisette Owens PA-C [Family Provider] -
Interventions
Interventions:
*Risk Screen - Suicide Last Done: 06/22/24 00:28
*General Assessment Last Done: 06/22/24 00:28
*Neglect/Abuse Screening Last Done: 06/22/24 00:28
ED- Fall Risk Assessment Last Done: 06/22/24 02:25
*ED COVID-19 Vaccine History Last Done: 06/22/24 02:25
ED- Pulmonary Assessment Last Done: 06/22/24 02:25
ED- Neurological Assessment Last Done: 06/22/24 02:25
ED- Cardiac Assessment Last Done: 06/22/24 02:25
ED Swallowing Screen Last Done: 06/22/24 02:25
Discharge Date and Time
Print Language: CITIZEN OF [place]
[2024-06-22] MEDS: ZOFRAN 4 MG IV (04:54)
[2024-06-22] MEDS: FLUSH (NSS) 1 FLUSH IV (04:57)
--- NOTE | 2024-06-22 05:29 | HPS.HSE ---
Family Physician
-
Family Physician: Lisette Owens
Chief Complaint
-
Left-sided numbness
History of Present Illness
This is a 53-year-old with past medical history significant for insulin-dependent diabetes, asthma, migraine headaches, RACHEL on CPAP and hyperlipidemia presenting to the emergency department with 3 days of facial numbness and 1 day of hand tingling.
Patient describes symptoms began about 3 days ago with mostly a sensation of pulsations in the head which she initially thought was associated with hypoglycemia but her blood glucoses were normal. Then she developed slight bump blurry vision of the
left visual field and left eye. She then started to report numbness on the left side of her face around the temples and zygomatic bone. She denies any facial asymmetry. There was no facial droop.
She reports that when she had the left lower hand tingling she decided to come to the emergency department. She denied any left hand numbness. She denied any weakness. She denied any palpitations lightheadedness or dizziness. She reported that
she was diagnosed with TIA and was on aspirin for about 6 months. She stopped taking aspirin several weeks ago because her physicians told her that it is unlikely that she had a TIA.
In the emergency department she had a normal blood pressure of 113/60 with a pulse of 70 and oxygen saturation of 98% on room air. CBC was unremarkable electrolytes BUN/creatinine were also unremarkable. She had a CT of the head which shows no
acute abnormalities. CT angio shows patent vessels without dissection aneurysm or bleed.
Medical History
Past Medical History
Past Medical History: Reports None, Asthma, Hypercholesterolemia and IDDM
Additional Past Medical History:
RACHEL on CPAP
Past Surgical History: Reports Other
Social History
Tobacco: Non-smoker
Alcohol: None
Drug: None
Personal:
Living: With Family
Family History
Family History: Not pertinent
Allergies / Home Medications
Allergies reflects when Allergies were last updated in [facility].
Home Medications with original date entered in [facility]
Allergy/Medication List:
Allergies
Allergy/AdvReac Type Severity Reaction Status Date / Time
prednisone [Prednisone] Allergy Intermediate psychotic Verified 04/04/24 19:05
reaction
terbutaline Allergy nausea/vomi Verified 04/04/24 19:05
ting
Home Medications
esomeprazole magnesium 40 mg capsule,delayed release (Nexium) 40 mg PO QPM Gastrointestinal Issue 10/06/12
furosemide 40 mg tablet (Lasix) 40 mg PO BID Fluid Retention/Swelling 05/01/17
levocetirizine 5 mg tablet (Xyzal) 5 mg PO QPM Allergies 05/01/17
insulin glargine 100 unit/mL (3 mL) subcutaneous pen (Lantus Solostar U-100 Insulin) 25 unit SC QPM Diabetes 08/07/22
montelukast 10 mg tablet (Singulair) 10 mg PO QPM Allergies 08/07/22
Lactobac no.2-Bifidobac no.1-S. thermo 112.5 billion cell capsule (Visbiome) 1 cap PO DAILY Gastrointestinal Issue 05/26/23
atogepant 60 mg tablet (Qulipta) 60 mg PO QPM Migraine 05/26/23
dapagliflozin propanediol 10 mg tablet (Farxiga) 10 mg PO DAILY Diabetes 05/26/23
dihydroergotamine (Trudhesa) 1 spray intranasal DAILYPRN PRN migraine headaches 05/26/23
fluticasone 250 mcg-salmeterol 50 mcg/dose blistr powdr for inhalation (Advair Diskus) 1 inh inhalation R BID Lung/Breathing Issues 05/26/23
liraglutide 0.6 mg/0.1 mL (18 mg/3 mL) subcutaneous pen injector (Victoza 2-Eddie) 1.2 mg SC DAILY Diabetes 05/26/23
simvastatin 80 mg tablet 80 mg PO QPM High Cholesterol
rizatriptan 10 mg tablet 10 mg PO DAILYPRN PRN migraines 05/26/23
venlafaxine 225 mg tablet,extended release 24 hr 225 mg PO DAILY Depression 05/26/23
albuterol sulfate 90 mcg/actuation aerosol inhaler 2 puff inhalation R Q4HPRN PRN sob/wheezing 05/31/23
Review of Systems
-
History Source: Patient
Constitutional: Reports No Symptoms
EENT: Reports No Symptoms
Respiratory: Reports No Symptoms
Cardiac: Reports No Symptoms
Abdomen/GI: Reports No Symptoms
: Reports No Symptoms
Musculoskeletal: Reports No Symptoms
Skin: Reports No Symptoms
Neurological: Reports No Symptoms
Endocrine: Reports No Symptoms
Hematologic/Lymphatic: Reports No Symptoms
Psych: Reports No Symptoms
Physical Exam
Vital Signs
Vital Signs
Temp Pulse Resp BP Pulse Ox
97.6 F 70 18 133/61 96
06/22/24 00:35 06/22/24 00:35 06/22/24 00:35 06/22/24 04:38 06/22/24 05:00
Physical Exam
General: Well Developed, Well Nourished, No Apparent Distress and Comfortable
HEENT: NormoCephalic, Anicteric, Moist mucous membranes and Atraumatic
Respiratory: Clear
Cardiac: S1/S2 and Regular Rhythm
Breast: Deferred by me
GI: Soft, Non Tender, Non Distended and Normal Bowel Sounds
Rectal: Deferred by Provider
Genito-urinary: Deferred by me
Musculoskeletal: No Clubbing, No Cyanosis and No Edema
Skin: Warm
Neuro: AO x 3, No Motor Deficits, Cranial Nerves Intact and No Sensory Deficits
Hematologic/Lymphatic: No Lymphadenopathy
Psych: Calm
Laboratory Results
-
06/22/24 01:31
06/22/24 01:31
Laboratory Results
Total Bilirubin 0.3 mg/dl (0.2-1.3) 06/22/24 01:31
AST 19 U/L (14-36) 06/22/24 01:31
ALT 24 U/L (0-35) 06/22/24 01:31
Alkaline Phosphatase 58 U/L (38-126) 06/22/24 01:31
Data Reviewed
-
CT Scan: Report Reviewed by me
Lab Data: Labs Reviewed by me
Old Records: Reviewed
Impression/Plan
-
IMPRESSION:
53 y.o female with left sided facial numbness and left hand tingling. No weakness. Symptoms started about 3 days ago. She had a prior TIA and was told to come in with such symptoms. No facial droop, aphasia or dysphagia. Normal speech and
affect. Possibly atypical migraine but denies any headache.
PLAN:
1. TIA - possible TIA, atypical presentation, symptoms for about 2-3 days w/o worsening focal deficit.
- admit to observation/telemetry
- aspirin 81 mg for now
- mri in am
- if mri negative, she likely can be discharged.
- continue simvastatin.
2. DM II
- lantus 30 hs
- continue farxiga
- sliding scale insulin
3. RACHEL
- cpap hs via home device
DVT PPX w/ lovenox sq
Code status - full code
[2024-06-22] MEDS: FARXIGA 10 MG PO (08:32)
[2024-06-22] MEDS: LOW STRENGTH ASPIRIN 81 MG PO (08:33)
[2024-06-22] MEDS: LASIX 40 MG PO (08:33)
--- NOTE | 2024-06-22 10:43 | W.PN.UPDATE ---
Update Note
Progress Note Update
H&P from 0529 today.
I independently evaluated the patient at the bedside in the ED. No acute events reported since admission. AFVSS.
53-year-old female with IDDM, asthma, RACHEL on CPAP, HLD, H/O TIA, morbid obesity that presented to the hospital with a complaint of left facial and upper extremity paresthesias over 2 to 3 days. Similar symptoms in the past. CTH and CTA without
LVO, transcortical infarction, ICH, or other acute findings on preliminary read. MRI brain without contrast pending
On exam she is neurologically intact without FND or cranial nerve deficits. 5/5 muscle strength in the upper extremities, no gross sensory deficits noted. NIHSS near 0
Paresthesias suspicious for TIA versus CVA. Other differentials include cervical myelopathy, peripheral neuropathy in the context of diabetes, though less likely in UE and with facial involvement. ABCD squared score 2-3, low risk. Will follow-up
MRI brain today. Currently on aspirin and statin, should likely have daily aspirin at [place] for primary prevention if MRI negative. If MRI positive will initiate CVA workup with TTE, possible carotid ultrasound, telemetry monitoring. Continue to
monitor neurochecks/NIHSS. Neurology consulted
Possible discharge later today if MRI negative
Full code
--- NOTE | 2024-06-22 15:22 | CM ---
Addendum entered by Aster Oconnor 06/22/24 15:30:
Patient out of room to MRI, OBS form left in room and CM will return to review.
Original Note:
Patient seen at bedside in ED. Patient states that she plans to go home with her to her ranch style home. Patient has 3 steps to enter and a CPAP at home. Patient PCP is Dr. De Anda and she uses the [facility] in [place] for her pharmacy needs.
Patient stated she is independent of ADL's and IADL's. CM will review OBS form and update patient. CM will continue to follow for discharge planning needs.
Plan; home with VN vs home with no needs.
--- NOTE | 2024-06-23 14:03 | W.DCSUMMARY ---
Discharge Summary
Discharge Data
Date of Admission: 06/22/24
Date of Discharge: 06/23/24
-
Pending Results: No
Hospital Course
53-year-old female with IDDM, asthma, RACHEL on CPAP, HLD, history of TIA, morbid obesity that presented to the hospital with paresthesias of the left face and left upper extremity over 2 to 3 days, similar with symptoms of TIA in the past. CTh, CTA,
MRI brain were all negative. Symptoms resolved initially while in the ED. Was started on aspirin daily for risk reduction. Continued on statin. Discharged from the ED after MRI was negative. Should follow-up with family care physician after
discharge
Discharge Plan
-
Patient Disposition: Home (Routine Discharge)
Discharge Diagnosis/Procedures: Stroke like symptoms
Paresthesias
Possible TIA
Condition: Good
Diet: Low Fat
Activity: As tolerated
Additional Activity: 30 min aerobic exercise daily as tolerated
Driving Restrictions: As prior to admission
Bathing Restrictions: None
Blood Work: None
Activity Restrictions/Additional Instructions:
Follow up with Family physician after discharge, should be seen in office within 1-2 weeks
If symptoms recur, or you develop new symptoms like trouble speaking you should return to the ED
Instructions: Paresthesia (DC)
Stand Alone Forms: Return to Work
Referrals:
Lisette Owens PA-C [Family Provider] -
Additional Discharge Medication Instructions: Start daily Aspirin 81 mg until seen by Family doctor
Prescriptions:
New
aspirin 81 mg Tablet,Chewable
81 mg PO DAILY 30 Days Qty: 30 0RF
Continued
esomeprazole magnesium [Nexium] 40 MG capsule,delayed release(DR/EC)
40 mg PO QPM
furosemide [Lasix] 40 MG tablet
40 mg PO BID
levocetirizine [Xyzal] 5 MG tablet
5 mg PO QPM
montelukast [Singulair] 10 mg Tablet
10 mg PO QPM
ondansetron 8 mg Tablet,Disintegrating
8 mg PO Q8HPRN PRN (Reason: nausea/vomiting)
pravastatin 80 mg Tablet
80 mg PO QPM
Qulipta 60 mg Tablet
60 mg PO HS
dapagliflozin propanediol [Farxiga] 10 mg Tablet
10 mg PO DAILY
albuterol sulfate 90 mcg/actuation Hfa Aerosol Inhaler
2 puff INHALATION R Q4HPRN PRN (Reason: sob/wheezing)
cholecalciferol (vitamin D3) [Vitamin D3] 125 mcg (5,000 unit) Tablet
125 mcg PO DAILY
ibuprofen 200 mg Tablet
200 mg PO Q6H PRN (Reason: mild pain)
duloxetine 30 mg Capsule,Delayed Release(Dr/Ec)
30 mg PO QPM
insulin glargine-yfgn [Semglee(insulin glargine-yfgn)] 100 unit/mL Solution
30 unit SC HS
Mounjaro 7.5 mg/0.5 mL Pen Injector
7.5 mg SC TU
rizatriptan 10 mg Tablet,Disintegrating
0 mg PO .COMPLEX
Rx Instructions:
take 1 tab at onset of headache; if no relief may repeat 1 tab after at least 2 hrs; max = 3 tabs/24 hr
ezetimibe [Zetia] 10 mg Tablet
10 mg PO DAILY
cyclosporine [Restasis] 0.05 % Dropperette
1 drp BOTH EYES Q12H
Vraylar 1.5 mg Capsule
1.5 mg PO DAILY
Discharge Orders:
Discharge Patient (As Directed); Ordered 06/22/24
Ordered By: Nate Blackmon
Discharge Date and Time
Discharge Date/Time: 06/22/24 16:51
Print Language: MALAYSIAN
== END 2024-06-22 16:51 | disposition home or self-care (01) ==
LOC: ED 06:00
PROVIDERS: ADMITTING PHYSICIAN Internal Medicine; ATTENDING PHYSICIAN Internal Medicine; EMERGENCY PHYSICIAN Student in an Organized Health Care Education/Training Program; FAMILY PHYSICIAN Physician Assistant Medical
DX: G45.9 Transient cerebral ischemic attack, unspecified (principal); H53.8 Other visual disturbances; R20.0 Anesthesia of skin; R29.810 Facial weakness; F32.A Depression, unspecified; J45.909 Unspecified asthma, uncomplicated; G47.33 Obstructive sleep apnea (adult) (pediatric); G43.909 Migraine, unspecified, not intractable, without status migrainosus; E78.00 Pure hypercholesterolemia, unspecified; E11.9 Type 2 diabetes mellitus without complications; K21.9 Gastro-esophageal reflux disease without esophagitis; E66.01 Morbid (severe) obesity due to excess calories; Z68.42 Body mass index [BMI] 45.0-49.9, adult; Z79.4 Long term (current) use of insulin; Z79.51 Long term (current) use of inhaled steroids; Z79.84 Long term (current) use of oral hypoglycemic drugs; Z79.85 Long-term (current) use of injectable non-insulin antidiabetic drugs; Z87.891 Personal history of nicotine dependence; Z90.49 Acquired absence of other specified parts of digestive tract; Z82.49 Family history of ischemic heart disease and other diseases of the circulatory system; Z86.73 Personal history of transient ischemic attack (TIA), and cerebral infarction without residual deficits; Z88.8 Allergy status to other drugs, medicaments and biological substances
CPT/HCPCS: 70496; 70551; 80053; 85025; 96374; 99285; G0378; Q9967

== ENCOUNTER 2024-11-25 06:26 | Day surgery (SDC) | payer OTHER, SELFPAY ==
[2024-11-25 07:25] LABS: Glucose - Point of Care 191 mg/dl (70-99)
[2024-11-25 07:28] VITALS: BMI 46.5
[2024-11-25 07:29] VITALS: BP 124/77
[2024-11-25 08:41] VITALS: BP 110/75
[2024-11-25 08:45] VITALS: BP 132/68
[2024-11-25 09:00] VITALS: BP 125/76
== END 2024-11-25 09:20 | disposition home or self-care (01) ==
LOC: SDS 06:26
PROVIDERS: ATTENDING PHYSICIAN Internal Medicine Gastroenterology
DX: Z12.11 Encounter for screening for malignant neoplasm of colon (principal); K64.0 First degree hemorrhoids; D12.5 Benign neoplasm of sigmoid colon; D12.3 Benign neoplasm of transverse colon; D12.2 Benign neoplasm of ascending colon; R12 Heartburn; R11.2 Nausea with vomiting, unspecified; R14.0 Abdominal distension (gaseous); K31.7 Polyp of stomach and duodenum; K31.89 Other diseases of stomach and duodenum
CPT/HCPCS: 45380; 45385; 43239; 88305; 82962; 88342

== ENCOUNTER 2024-12-22 07:37 | Inpatient (IN) | payer OTHER, SELFPAY ==
[2024-12-20 20:58] VITALS: BMI 49.6
[2024-12-20 21:00] VITALS: BP 109/69
[2024-12-20 21:04] LABS: Glucose - Point of Care 457 mg/dl (70-99)
[2024-12-20 21:28] VITALS: BP 149/77
[2024-12-20 21:54] LABS: % Basophils 0.3 % (0-2); % Immature Granulocytes 0.7 % (0-0.5); % Lymphocytes 10.4 % (20.5-51.1); % Monocytes 3.9 % (1.7-9.3); % Neutrophils 84.7 % (42.2-75.2); Absolute Immature Granulocytes 0.1 10^3/uL (0-0.05); Absolute Lymphocytes 1.2 10^3/uL (1.2-3.4); Absolute Monocytes 0.5 10^3/uL (0.1-0.6); Absolute Neutrophils 9.9 10^3/uL (1.4-6.5); Hematocrit 38.1 % (37.0-47.0); Hemoglobin 12.7 g/dL (12.0-16.0); Mean Corp Hgb Conc. 33.3 g/dL (33.0-37.0); Mean Corpuscular Volume 84.1 fL (81.0-99.0); Nucleated Red Blood Cells % 0 %; Platelet Count 284 10^3/uL (130-400); Red Blood Cell Count 4.53 10^6/uL (4.20-5.40); Red Cell Dist. Width 14.2 % (11.5-14.5); White Blood Cell Count 11.7 10^3/uL (4.8-10.8)
[2024-12-20 22:00] VITALS: BP 151/85
[2024-12-20 22:18] LABS: AST (SGOT) 27 U/L (14-36); Albumin 4.2 g/dl (3.5-5.0); Alkaline Phosphatase 64 U/L (38-126); Blood Urea Nitrogen 27 mg/dl (7-17); Calcium 9.7 mg/dl (8.4-10.2); Carbon Dioxide 22 mmol/L (22-30); Chloride 106 mmol/L (98-107); Estimated Creatinine Clearance 116 ml/min; Glucose 493 mg/dl (70-99); Potassium 4.2 mmol/L (3.5-5.1); Sodium 138 mmol/L (135-145); Total Bilirubin 0.2 mg/dl (0.2-1.3); eGFR > 60.00
[2024-12-20 22:26] LABS: ALT (SGPT) 43 U/L (0-35); B-Hydroxybutyrate 0.18 mmol/L (0.02-0.27)
--- NOTE | 2024-12-20 22:26 | ED.GENMED ---
History of Present Illness
General
Chief Complaint: Blood Sugar Problem
Source: patient
Exam Limitations: none
Time Seen by Provider: 12/20/24 22:26
History of Present Illness
History of Present Illness:
Note:
CHIEF COMPLAINT(S)
High blood sugar, dizziness, nausea, headache, and excessive thirst.
HISTORY OF PRESENT ILLNESS
The patient is a 54-year-old female with a history of insulin-dependent diabetes who presents with elevated blood sugar, dizziness, nausea, headache, and increased thirst. She reports her symptoms have been ongoing, with blood sugars recently rising
to the mid-200s, which is typical but usually resolves. She has experienced blurry vision, associated with blood sugar levels, and a recent fever of 102.3�F this morning. She visited the doctor earlier today and was diagnosed with a sinus infection
and upper respiratory illness, for which she was prescribed antibiotics and steroids. She denies any diagnosis of pneumonia and reports asthma and depression as additional medical conditions. She mentions experiencing chest tightness relieved by
inhalers and steroids, sweating, and chills. The patient administered 30 units of insulin as per her sliding scale but notes her blood sugar remains high. She has never had diabetic ketoacidosis. EMS and initial evaluations indicate dehydration;
therefore, fluids will be administered before insulin and further lab work will be conducted to assess potential hospital admission.
EXTERNAL RECORDS REVIEWED
The patient mentions a previous visit to the doctor earlier today, where a sinus infection and upper respiratory illness were diagnosed, antibiotic and steroid treatment was prescribed, and no COVID was confirmed.
CHRONIC MEDICAL CONDITIONS SIGNIFICANTLY AFFECTING CARE
The patient has a history of insulin-dependent diabetes, asthma, and depression.
SOCIAL HISTORY
The patient mentions an acquaintance with a family member of the physician.
REVIEW OF SYSTEMS
- Constitutional: Fever, increased thirst, sweating, and chills.
- Eyes: Blurred vision associated with high blood sugar.
- Respiratory: Recent upper respiratory infection, asthma with chest tightness relieved by inhalers.
- Cardiovascular: Increased heart rate noted.
- Gastrointestinal: Nausea without vomiting, good bowel sounds noted.
- Musculoskeletal: No significant joint pain or swelling.
- Neurological: Dizziness and headache.
- Endocrine: High blood sugar levels.
PHYSICAL EXAM
- Constitutional: The patient appears alert and oriented, awake, and in no acute distress.
- Respiratory: Lungs clear to auscultation, no wheezes or rales noted.
- Cardiovascular: Sinus rhythm on monitor, pulse oximetry is perfect, but the heart rate slightly elevated.
- Gastrointestinal: Abdomen is non-tender with good bowel sounds.
- Extremities: No significant swelling or joint pain noted.
Nursing notes reviewed and vital signs reviewed.
PROBLEM LIST
- Acute: Elevated blood sugar, sinus infection, dehydration.
- Chronic: Insulin-dependent diabetes, asthma, depression.
PLAN
- Administer fluids to address dehydration and recheck blood sugar levels.
- Conduct further lab work to determine the need for insulin administration.
- Potential admission based on lab results and response to fluid therapy.
- Monitor closely for diabetic ketoacidosis and other possible complications.
DIFFERENTIAL DIAGNOSIS
The Differential Diagnosis includes, in no particular order and is not limited to:
- Diabetic ketoacidosis
- Hyperglycemic hyperosmolar state
- Dehydration
- Electrolyte imbalance
- Infection-induced hyperglycemia
- Steroid-induced hyperglycemia
- Acute sinusitis
- Asthma exacerbation
- Medication side effects
- Anxiety-related symptoms
CARE-UPDATE
12/21/24 - 04:51
The patient reports experiencing significant dizziness, particularly upon standing or moving around, and feels short of breath during these episodes. Blood tests indicate no signs of diabetic ketoacidosis (DCA). There is no ear wax buildup
contributing to symptoms. The patient expresses continued discomfort despite ongoing treatment for two infections with doxycycline. Orthostatic vital signs will be assessed to determine the cause of dizziness. Discharge consideration is dependent on
the results of these orthostatic vital sign assessments. A x ray technician will be sent shortly to expedite this process.
Disposition:
SUMMARY OF ENCOUNTER
A 54-year-old female presented to the emergency department with high blood sugar and dizziness, accompanied by increased weakness. The patient has a history of insulin-dependent diabetes. She reported her symptoms had worsened despite previous
medical treatment during the day.
EMERGENCY TREATMENTS ADMINISTERED
The patient received 2 liters of fluids in the emergency department; however, her symptoms of weakness remained unimproved post-administration.
INDEPENDENT INTERPRETATION OF TESTS
My independent interpretation of the lab results indicates the absence of diabetic ketoacidosis (DKA).
MEDICAL DECISION MAKING
Number and Complexity of Problems Addressed: The patient presented with acute issues of high blood sugar and dizziness, alongside chronic diabetes management considerations. After analyzing the patients symptoms and lab results, diabetic
ketoacidosis was ruled out as a cause.
Risk: Immediate management involved the administration of fluids to address potential dehydration. The patient�s symptoms and lack of improvement post-fluids were noted, concluding further evaluation and potential monitoring were necessary.
Past History
Past History
ED Past Medical History: Asthma, GERD, Hypercholesterolemia, NIDDM, Psychiatric (depression) and Other (Palpitations, migraines, sciatica)
ED Past Surgical History: Cholecystectomy
Social History
Tobacco: Former smoker
Alcohol: None
Drug: None
Personal:
Living: with family
Employment: Employed
Family History
Family History: Hypertension, CAD and Other (SLE)
Review of Systems
Review of Systems
Allergies reviewed?: Yes
Other source history: family
All Other Systems: Not applicable
Phy Exam
Physical Exam
Physical Exam:
.
Course
Orders/Labs/Results
Orders:
Orders
12/20/24 21:37
B-Hydroxybutyrate Urgent
Comment: ADD ON
CMP [Comprehensive Metabolic Panel] Urgent
Complete Blood Count/With Diff Urgent
Glycohemoglobin (HgbA1c) Urgent
UA Reflex to Culture [Urinalysis Reflex To Culture] Urgent
Date Specimen was Collected: 12/20/24
Time Specimen was Collected: 21:20
12/20/24 21:55
Add On- LAB Urgent
Tests Added?: b- hydroxybutyrate
12/20/24 22:26
Bedside Glucose- Treatment ONCE
IV Insert/Care/Rem.- Treatment PRN
0.9% Sodium Chloride 1000 ml [Nss] 1,000 ml IV BOLUS
0.9% Sodium Chloride 1000 ml [Nss] 1,000 ml IV BOLUS
12/20/24 22:31
Add On- LAB Urgent
Tests Added?: hemoglobin A1C
12/20/24 23:01
Arterial Blood Gas Urgent
%Oxygen/Room Air: ra
12/21/24 00:48
Basic Metabolic Panel Q2H
12/21/24 05:09
Orthostatic VS- Treatment ONCE
12/21/24 05:28
Basic Metabolic Panel Q2H
CMP [Comprehensive Metabolic Panel] Urgent
Complete Blood Count/With Diff Urgent
Abnormal Lab Results
12/20/24 12/20/24 12/20/24
21:02 21:37 23:01
WBC 11.7 H 10^3/uL
(4.8-10.8)
Abs Immat Gran (auto) 0.1 H 10^3/uL
(0-0.05)
Absolute Neuts (auto) 9.9 H 10^3/uL
(1.4-6.5)
Immature Gran % 0.7 H %
(0-0.5)
Neutrophils % 84.7 H %
(42.2-75.2)
Lymphocytes % 10.4 L %
(20.5-51.1)
pH 7.46 H
(7.35-7.45)
pCO2 31 L mmHg
(32-35)
pO2 175 H mmHg
(83-108)
ABG O2 Sat (Measured) 99.6 H %
(94-98)
Chloride
Carbon Dioxide
BUN 27 H mg/dl
(7-17)
Glucose 493 H* mg/dl
(-99)
ALT 43 H U/L
(0-35)
Urine Glucose 4+ A
(Negative)
POC Glucose 457 H* mg/dl
()
12/20/24 12/21/24 12/21/24
23:32 00:48 02:36
WBC
Abs Immat Gran (auto)
Absolute Neuts (auto)
Immature Gran %
Neutrophils %
Lymphocytes %
pH
pCO2
pO2
ABG O2 Sat (Measured)
Chloride 111 H mmol/L
(98-107)
Carbon Dioxide 21 L mmol/L
(22-30)
BUN 26 H mg/dl
(7)
Glucose 385 H mg/dl
(-)
ALT
Urine Glucose
POC Glucose 392 H mg/dl 327 H mg/dl
() (70-99)
12/21/24
04:11
WBC
Abs Immat Gran (auto)
Absolute Neuts (auto)
Immature Gran %
Neutrophils %
Lymphocytes %
pH
pCO2
pO2
ABG O2 Sat (Measured)
Chloride
Carbon Dioxide
BUN
Glucose
ALT
Urine Glucose
POC Glucose 275 H mg/dl
(-)
Vital Signs
Initial and Last Documented VS:
Initial Vital Signs
Temp Pulse Resp BP Pulse Ox
97.9 F 95 20 109/69 96
12/20/24 21:00 12/20/24 21:00 12/20/24 21:00 12/20/24 21:00 12/20/24 21:00
Last Documented Vital Signs
Temp Pulse Resp BP Pulse Ox
98.0 F 77 18 153/102 95
12/21/24 02:30 12/21/24 02:30 12/21/24 02:30 12/21/24 04:58 12/21/24 02:30
*Critical Care Note
Total Time (30-74mins, 75-104mins- exclusive of procedures): Not Applicable
Update Note
Update Note:
Anion gap is 8.0
ED Attending Note
-
Portions of this chart may have been created with voice recognition software.� Occasional wrong word or��sound alike� substitutions may have occurred due to the inherent limitations of voice recognition software.
Discharge Plan
Departure
Patient Disposition: Admit
Date of Disposition: 12/21/24
Time of Disposition: 05:32
Admit to: Telemetry
Presentation/result/management discussed w/ accepting MD/DO: Hospitalist
Discharge Problem:
High blood sugar, Orthostatic hypotension
Prescriptions:
No Action
esomeprazole magnesium [Nexium] 40 MG capsule,delayed release(DR/EC)
40 mg PO QPM
furosemide [Lasix] 40 MG tablet
40 mg PO BID
montelukast [Singulair] 10 mg Tablet
10 mg PO QPM
ondansetron 8 mg Tablet,Disintegrating
8 mg PO Q8HPRN PRN (Reason: nausea/vomiting)
pravastatin 80 mg Tablet
80 mg PO QPM
Qulipta 60 mg Tablet
60 mg PO HS
dapagliflozin propanediol [Farxiga] 10 mg Tablet
10 mg PO DAILY
albuterol sulfate 90 mcg/actuation Hfa Aerosol Inhaler
2 puff INHALATION R Q4HPRN PRN (Reason: sob/wheezing)
cholecalciferol (vitamin D3) [Vitamin D3] 125 mcg (5,000 unit) Tablet
125 mcg PO DAILY
ibuprofen 200 mg Tablet
200 mg PO Q6H PRN (Reason: mild pain)
insulin glargine-yfgn [Semglee(insulin glargine-yfgn)] 100 unit/mL Solution
30 unit SC HS
rizatriptan 10 mg Tablet,Disintegrating
0 mg PO .COMPLEX
Rx Instructions:
take 1 tab at onset of headache; if no relief may repeat 1 tab after at least 2 hrs; max = 3 tabs/24 hr
ezetimibe [Zetia] 10 mg Tablet
10 mg PO DAILY
Vraylar 1.5 mg Capsule
1.5 mg PO DAILY
aspirin 81 mg Tablet,Chewable
81 mg PO DAILY 30 Days Qty: 30 0RF
fexofenadine [Claudia Allergy] 180 mg Tablet
180 mg PO DAILY
doxycycline monohydrate 100 mg Capsule
100 mg PO BID
methylprednisolone [Medrol (Eddie)] 4 mg Tablets,Dose Pack
4 mg PO DAILY
insulin aspart U-100 [Novolog FlexPen U-100 Insulin] 100 unit/mL (3 mL) Insulin Pen
1 sliding scale dose SC DIRECTED
desvenlafaxine succinate [Pristiq] 100 mg Tablet Extended Release 24 Hr
100 mg PO DAILY
Referrals:
Carla Bai PA-C [Family Provider, Family Practice]
Interventions
Interventions:
*Risk Screen - Suicide Last Done: 12/20/24 21:00
*General Assessment Last Done: 12/20/24 21:00
*Neglect/Abuse Screening Last Done: 12/20/24 21:00
*ED- Fall Risk Assessment Last Done: 12/20/24 21:00
ED- Neurological Assessment Last Done: 12/20/24 21:50
Discharge Date and Time
Print Language: [place]
[2024-12-20 22:30] LABS: Urine Albumin Negative (Neg - Trace); Urine Bilirubin Negative (Negative); Urine Character Clear (Clear); Urine Glucose 4+ (Negative); Urine Ketone Negative (Negative); Urine Leukocyte Negative (Negative); Urine Nitrite Negative (Negative); Urine Occult Blood Negative (Negative); Urine Urobilinogen Negative (Neg - 1+)
[2024-12-20] MEDS: NSS 1000 IV ×2 (22:36→23:35)
[2024-12-20 22:37] LABS: Urine Color Straw
[2024-12-20 23:11] LABS: O2 Saturation % 99.6 % (94-98); PCO2 31 mmHg (32-35); PO2 175 mmHg (83-108); pH 7.46 (7.35-7.45)
[2024-12-20 23:34] LABS: Glucose - Point of Care 392 mg/dl (70-99)
[2024-12-20 23:36] VITALS: BP 136/79
[2024-12-21] VITALS (10 sets, daily range): BP systolic 110–163; BP diastolic 63–102; PULSE 70–102
[2024-12-21 01:14] LABS: Blood Urea Nitrogen 26 mg/dl (7-17); Calcium 8.6 mg/dl (8.4-10.2); Carbon Dioxide 21 mmol/L (22-30); Chloride 111 mmol/L (98-107); Estimated Creatinine Clearance > 125 ml/min; Glucose 385 mg/dl (70-99); Sodium 140 mmol/L (135-145); eGFR > 60.00
[2024-12-21 02:38] LABS: Glucose - Point of Care 327 mg/dl (70-99)
[2024-12-21 04:13] LABS: Glucose - Point of Care 275 mg/dl (70-99)
--- NOTE | 2024-12-21 05:37 | HPS.HSE ---
Family Physician
-
Family Physician: Carla Bai PA-C
Chief Complaint
-
Elevated blood glucose
History of Present Illness
This is a 54-year-old female with past medical history significant for insulin-dependent diabetes, obesity, RACHEL, asthma and hyperlipidemia as well as migraine headaches who presents to the emergency department with complaints of elevated blood
glucose.
Patient reported that she started having sinus congestion headache postnasal drip and fever that was high as 102 at home on Thursday 3 days ago. She will ultimately was seen in the clinic on Thursday and was diagnosed with sinusitis. She started
doxycycline and a Medrol Dosepak on Thursday. She noticed that blood glucose started getting elevated on Thursday to as high as 200s and in 300s on Thursday and by Thursday she was up to 500. She has never had such elevated blood glucoses in the past
she came to the emergency department. She denied having any nausea or vomiting. She denies any diarrhea. She is unable to tell me where that she was polyuric or not. Patient is on twice daily Lasix for lower extremity swelling but has not been
diagnosed with congestive heart failure. She also has Jardiance for diabetes control.
Over the last 24 hours patient reported that she has been having orthostatic symptoms. Anytime she gets up she feels lightheaded without any palpitations chest pain chest tightness or shortness of breath. She feels that she will pass out but she
never had a syncopal episode. She denies any prior history of such lightheadedness. In the past she has had minor dizziness with which she was thought to be TIA. She denies any history of valvular heart disease. She denies any history of
coronary artery disease.
While in the Emergency Department patient reported she could not shake the feeling of dizziness. She was found to be orthostatic in the ED. Her systolic blood pressure dropped by 20 points from 130-110 and heart rate went up by about 5 points.
After 2 L of IV fluids she was still dizzy. She was then referred for admission.
In the emergency department she was normotensive supine at the blood pressure of 150/100 pulse 77 satting 98% on room air. He had a fingerstick blood glucose of over 450 on arrival. CBC was unremarkable with a white count of 11.7. Electrolytes
were stable with a bicarb of 21. BUN was 02/04. Creatinine was normal. There was no anion gap. Serum glucose was 380.
ABG was 7.4 . UA was positive for glucose but negative for ketones. Beta-hydroxybutyrate is negative.
Medical History
Past Medical History
Past Medical History: Reports None, Asthma, Hypercholesterolemia and IDDM
Additional Past Medical History:
RACHEL on CPAP
Past Surgical History: Reports Other
Social History
Tobacco: Non-smoker
Alcohol: None
Drug: None
Personal:
Living: With Family
Family History
Family History: Not pertinent
Allergies / Home Medications
Allergies reflects when Allergies were last updated in [facility].
Home Medications with original date entered in [facility]
Allergy/Medication List:
Allergies
Allergy/AdvReac Type Severity Reaction Status Date / Time
prednisone [Prednisone] Allergy Intermediate psychotic Verified 04/04/24 19:05
reaction
terbutaline Allergy nausea/vomi Verified 04/04/24 19:05
ting
Home Medications
esomeprazole magnesium 40 mg capsule,delayed release (Nexium) 40 mg PO QPM Gastrointestinal Issue 10/06/12
furosemide 40 mg tablet (Lasix) 40 mg PO BID Fluid Retention/Swelling 05/01/17
levocetirizine 5 mg tablet (Xyzal) 5 mg PO QPM Allergies 05/01/17
insulin glargine 100 unit/mL (3 mL) subcutaneous pen (Lantus Solostar U-100 Insulin) 25 unit SC QPM Diabetes 08/07/22
montelukast 10 mg tablet (Singulair) 10 mg PO QPM Allergies 08/07/22
Lactobac no.2-Bifidobac no.1-S. thermo 112.5 billion cell capsule (Visbiome) 1 cap PO DAILY Gastrointestinal Issue 05/26/23
atogepant 60 mg tablet (Qulipta) 60 mg PO QPM Migraine 05/26/23
dapagliflozin propanediol 10 mg tablet (Farxiga) 10 mg PO DAILY Diabetes 05/26/23
dihydroergotamine (Trudhesa) 1 spray intranasal DAILYPRN PRN migraine headaches 05/26/23
fluticasone 250 mcg-salmeterol 50 mcg/dose blistr powdr for inhalation (Advair Diskus) 1 inh inhalation R BID Lung/Breathing Issues 05/26/23
liraglutide 0.6 mg/0.1 mL (18 mg/3 mL) subcutaneous pen injector (Victoza 2-Eddie) 1.2 mg SC DAILY Diabetes 05/26/23
simvastatin 80 mg tablet 80 mg PO QPM High Cholesterol
rizatriptan 10 mg tablet 10 mg PO DAILYPRN PRN migraines 05/26/23
venlafaxine 225 mg tablet,extended release 24 hr 225 mg PO DAILY Depression 05/26/23
albuterol sulfate 90 mcg/actuation aerosol inhaler 2 puff inhalation R Q4HPRN PRN sob/wheezing 05/31/23
Review of Systems
-
History Source: Patient
Constitutional: Reports No Symptoms and Fever
EENT: Reports Runny Nose and Other (Sinus congestion)
Respiratory: Reports Cough
Cardiac: Reports No Symptoms
Abdomen/GI: Reports No Symptoms
: Reports No Symptoms
Musculoskeletal: Reports No Symptoms
Skin: Reports No Symptoms
Neurological: Reports Dizzy (Lightheadedness)
Endocrine: Reports No Symptoms
Hematologic/Lymphatic: Reports No Symptoms
Psych: Reports No Symptoms
Physical Exam
Vital Signs
Vital Signs
Temp Pulse Resp BP Pulse Ox
98.0 F 77 18 153/102 95
12/21/24 02:30 12/21/24 02:30 12/21/24 02:30 12/21/24 04:58 12/21/24 02:30
Physical Exam
General: Well Developed, Well Nourished, No Apparent Distress and Comfortable
HEENT: NormoCephalic, Anicteric, Moist mucous membranes and Atraumatic
Respiratory: Clear
Cardiac: S1/S2 and Regular Rhythm
Breast: Deferred by me
GI: Soft, Non Tender, Non Distended and Normal Bowel Sounds
Rectal: Deferred by Provider
Genito-urinary: Deferred by me
Musculoskeletal: No Clubbing, No Cyanosis and No Edema
Skin: Warm
Neuro: AO x 3, No Motor Deficits, Cranial Nerves Intact and No Sensory Deficits
Hematologic/Lymphatic: No Lymphadenopathy
Psych: Calm
Laboratory Results
-
Laboratory Results
pH 7.46 (7.35-7.45) H 12/20/24 23:01
pCO2 31 mmHg (32-35) L 12/20/24 23:01
pO2 175 mmHg (83-108) H 12/20/24 23:01
HCO3 22.0 mmol/L (21-28) 12/20/24 23:01
Total Bilirubin 0.2 mg/dl (0.2-1.3) 12/20/24 21:37
AST 27 U/L (14-36) 12/20/24 21:37
ALT 43 U/L (0-35) H 12/20/24 21:37
Alkaline Phosphatase 64 U/L (38-126) 12/20/24 21:37
Data Reviewed
-
Medical Tests (Nuc Med, Echo, EKG etc): Image Personally Visualized and interpreted
Lab Data: Labs Reviewed by me
Old Records: Reviewed
Impression/Plan
-
IMPRESSION:
51-year-old with history of asthma, insulin-dependent diabetes, morbid obesity, migraine headaches, RACHEL chronic lower extremity edema and hyperlipidemia presenting to the emergency department with uncontrolled blood glucose. She is hyperglycemic to
450s without any evidence of DKA. Blood gas is normal. He has no anion gap. There are no ketones in the urine. Beta hydroxy butyrate is negative. Hyperglycemia likely secondary to episode of sinusitis with use of steroids. She also did not
take her Tresiba last night. I suspect she is orthostatic secondary to dehydration from polyuria in the setting of hyperglycemia with ongoing Lasix use as well as dapagliflozin use. Large glucosuria in the urine noted. She has a positive viral
study vital signs in the ED consistent with her symptoms. No vertigo. No focal neurological deficits. She is afebrile here and with slight leukocytosis possibly secondary to steroid use but could be from the sinusitis. She is not wheezing
suggestive of any asthma exacerbation and she has no history of COPD or recurrent bronchitis.
PLAN:
Orthostatic Hypotension -suspect hypovolemic. No known history of valvular disease carotid stenosis, coronary artery disease or congestive heart failure
- Admit to [facility] obs
- Check ECG,
- Check troponin and BNP
- Continue IV fluids for now
- Orthostatics daily
- Hold Lasix, hold dapagliflozin
- Control of hyperglycemia
Hyperglycemia -DM2, steroid taper
- Hold steroid taper, patient does not have asthma exacerbation and has no history of COPD for which antibiotic plus steroid is appropriate but not for asthma
- Moderate sliding scale
- 15 units of aspart 3 times daily AC
- Tresiba daily
- A1c pending
Sinusitis
-Continue doxycycline
-No role for steroids now
Asthma -clear lungs, no wheezing at all or crackles.
-Use Advair for now
-Montelukast
-Albuterol as needed
RACHEL
-Continue home CPAP
DVT PPX - SCDs
Code status - full code
[2024-12-21 06:24] LABS: Hematocrit 35.9 % (37.0-47.0); Red Blood Cell Count 4.31 10^6/uL (4.20-5.40); White Blood Cell Count 10.4 10^3/uL (4.8-10.8)
[2024-12-21 06:25] LABS: % Basophils 0.8 % (0-2); % Eosinophils 0.7 % (0-6); % Immature Granulocytes 0.2 % (0-0.5); % Lymphocytes 26.8 % (20.5-51.1); % Monocytes 7.4 % (1.7-9.3); % Neutrophils 64.1 % (42.2-75.2); Absolute Basophils 0.1 10^3/uL (0-0.2); Absolute Eosinophils 0.1 10^3/uL (0-0.7); Absolute Lymphocytes 2.8 10^3/uL (1.2-3.4); Absolute Monocytes 0.8 10^3/uL (0.1-0.6); Absolute Neutrophils 6.7 10^3/uL (1.4-6.5); Mean Corp Hgb Conc. 33.4 g/dL (33.0-37.0); Mean Corpuscular Hgb 27.8 pg (27.0-31.0); Mean Corpuscular Volume 83.3 fL (81.0-99.0); Mean Platelet Volume 9.9 fL (7.4-10.4); Nucleated Red Blood Cells % 0 %; Platelet Count 254 10^3/uL (130-400); Red Cell Dist. Width 14.2 % (11.5-14.5)
[2024-12-21 06:39] LABS: ALT (SGPT) 33 U/L (0-35); AST (SGOT) 18 U/L (14-36); Albumin 3.9 g/dl (3.5-5.0); Alkaline Phosphatase 60 U/L (38-126); Blood Urea Nitrogen 20 mg/dl (7-17); Calcium 9.1 mg/dl (8.4-10.2); Carbon Dioxide 25 mmol/L (22-30); Chloride 108 mmol/L (98-107); Estimated Creatinine Clearance > 125 ml/min; Glucose 261 mg/dl (70-99); Potassium 3.8 mmol/L (3.5-5.1); Sodium 141 mmol/L (135-145); Total Bilirubin 0.3 mg/dl (0.2-1.3); Total Protein 6.6 g/dl (6.3-8.2); eGFR > 60.00
[2024-12-21 06:50] LABS: NT-proBNP 52.3 pg/ml; Troponin I < 0.012 ng/ml
[2024-12-21 08:11] LABS: Glucose - Point of Care 219 mg/dl (70-99)
[2024-12-21] MEDS: ADVAIR HFA 115/21 MCG INHALER 2 PUFF INH ×2 (08:24→20:00)
[2024-12-21 09:06] LABS: Glycohemoglobin (HgbA1c) 8.3 % (4.0-5.6)
[2024-12-21] MEDS: VIBRAMYCIN 100 MG PO ×2 (09:38→19:35)
[2024-12-21] MEDS: PRISTIQ 100 MG PO (09:38)
[2024-12-21] MEDS: LOW STRENGTH ASPIRIN 81 MG PO (09:38)
[2024-12-21] MEDS: NOVOLOG FLEXPEN-MODERATE RESISTANCE 3 UNITS SC (09:40)
[2024-12-21] MEDS: NOVOLOG FLEXPEN 15 UNITS SC ×3 (09:41→17:00)
[2024-12-21] MEDS: NSS 1000 IV (09:47)
[2024-12-21 10:46] LABS: Glucose - Point of Care 211 mg/dl (70-99)
--- NOTE | 2024-12-21 11:08 | PN.DE.MGMTRT ---
Insulin Management
- -
12/21/2024 Diabetes Management Consult
Patient admitted 12/20 with high blood sugar, feeling dizzy, nausea, head ache and thirst. PMH Diabetes, asthma, depression. Prior to admission was taking farxiga 10 mg daily, novolog ss at dinner and Semglee 30 units @ HS. She currently is using
the DexCom G7. A1C 8.3, cr .5, eGFR > 60.
Patient is awake alert and oriented in bed resting, able to discuss diabetes care. States she sees Dr. Moody at [facility]. States she was on Mounjaro for about 1 month but stopped because she was always nauseated and was deeply
depressed. States Dr. Moody started novolog 15 units with dinner about 1 month ago. States glucose has constantly been elevated. Discussed importance of consistent intake to help glucose control. She admits she is not great at that and agreed
to dietitian consult. Discussed that at discharge she most likely would benefit from AC novolog with all meals.
Diet change from 1800 calories to 1600 calories as patient is 5'2'.
Patient received no lantus @ hs 12/20, fasting glucose 219.
Hospitalist/Resident has started ac novolog 15 units with moderate corrective and will resume hs lantus 30 units tonight.
Discussed with nurse.
Will follow
Diabetes History
- -
Type of Diabetes: 2 requiring insulin
Pre-Admission Diabetes Regimen
12/20/24 12/20/24 12/21/24
21:37 22:26 00:48
Creatinine 0.7 Cancelled 0.6
12/21/24
06:07
Creatinine 0.5 L
Lab Results
Hemoglobin A1c Cancelled 12/20/24 22:26
Insulin Pump Settings
IP Diabetes Regimen
12/20/24 12/20/24 12/20/24
21:02 21:37 22:26
Glucose 493 H* Cancelled
POC Glucose 457 H*
12/20/24 12/21/24 12/21/24
23:32 00:48 02:36
Glucose 385 H
POC Glucose 392 H 327 H
12/21/24 12/21/24 12/21/24
04:11 06:07 08:10
Glucose 261 H
POC Glucose 275 H 219 H
12/21/24
10:45
Glucose
POC Glucose 211 H
Patient Education
[2024-12-21] MEDS: FARXIGA 10 MG PO (11:47)
[2024-12-21] MEDS: NOVOLOG FLEXPEN-MODERATE RESISTANCE 1 UNITS SC (12:31)
[2024-12-21 12:32] LABS: Glucose - Point of Care 151 mg/dl (70-99)
[2024-12-21] MEDS: ProAIR HFA INHALER 2 PUFF INH ×2 (14:08→22:35)
--- NOTE | 2024-12-21 14:41 | CM ---
geophysical manager reviewed patient's chart and met with patient and patient was admitted under OBS, OBS letter provided to patient and signed, patient lives with spouse in a one story home, with 3 steps to enter, patient is independent with adl's and
ambulation, no dme, patient drives.
PCP: Carla Bai
Pharmacy: [facility] in [place]
Plan; Home when stable.
[2024-12-21 16:19] LABS: Glucose - Point of Care 108 mg/dl (70-99)
[2024-12-21] MEDS: NOVOLOG FLEXPEN-MODERATE RESISTANCE SC ×2 (16:56→16:59)
--- NOTE | 2024-12-21 17:53 | PTCARENOTE ---
Rec'd pt from ED, oriented to room and unit. pt ambulated with assist, feels slightly dizzy, steady on her feet. Agreed to ring call oro for assistance. Call oro placed within reach, pt agreed to ring for assistance. will cont to monitor.
[2024-12-21] MEDS: PRAVACHOL 80 MG PO (18:05)
[2024-12-21] MEDS: SINGULAIR 10 MG PO (18:05)
[2024-12-21] MEDS: PROTONIX 40 MG PO (18:05)
[2024-12-21] MEDS: ATIVAN 0.5 MG PO (19:55)
--- NOTE | 2024-12-21 21:23 | PTCARENOTE ---
Addendum entered by Ioana Phillips RN 12/22/24 00:01:
2234 Blood sugar now 170, states headache improved. House [employer] Ani Anthony notified and changed Lantus to 22 units instead of 30 u. Insulin given. Pt asked to notify staff if she feels symptomatic again. Call oro within reach.
Original Note:
Pt ringing call oro stating she feels 'off' and has a headache. blood sugar checked = 116, pt has sandwich she is going to eat. Motrin given for headache. Will re check BS in 1 hour.
[2024-12-21 21:24] LABS: Glucose - Point of Care 116 mg/dl (70-99)
[2024-12-21] MEDS: MOTRIN 200 MG PO (21:29)
[2024-12-21 22:37] LABS: Glucose - Point of Care 170 mg/dl (70-99)
[2024-12-21] MEDS: LANTUS 0.22 UNITS SC (23:11)
[2024-12-21] MEDS: ZETIA 10 MG PO (23:11)
[2024-12-22] MEDS: ADVAIR HFA 115/21 MCG INHALER 2 PUFF INH (07:23)
--- NOTE | 2024-12-22 07:27 | PN.DE.MGMTRT ---
Insulin Management
- -
12/22/2024 Diabetes Management Consult Follow up
Patient admitted 12/20 with high blood sugar, feeling dizzy, nausea, head ache and thirst. PMH Diabetes, asthma, depression. Prior to admission was taking farxiga 10 mg daily, novolog ss at dinner and Semglee 30 units @ HS. She currently is using
the DexCom G7. A1C 8.3, cr .5, eGFR > 60.
Patient is awake alert and oriented in bed resting, able to discuss diabetes care. States she sees Dr. Moody at [facility]. States she was on Mounjaro for about 1 month but stopped because she was always nauseated and was deeply
depressed. States Dr. Moody started novolog 15 units with dinner about 1 month ago. States glucose has constantly been elevated. Discussed importance of consistent intake to help glucose control. She admits she is not great at that and agreed
to dietitian consult. Discussed that at discharge she most likely would benefit from AC novolog with all meals.
Diet change from 1800 calories to 1600 calories as patient is 5'2'.
12/21 Glucose at HS 116; HS lantus reduced by overnight SUSTAINABLE DEVELOPMENT POLICY ANALYST to 22 units.
12/22 Fasting glucose 161.
Will reduce AC novolog to 13 units with low corrective and will reduce hs lantus from 30 units to 25 units tonight.
Discussed with patient and nurse.
Will follow
Diabetes History
- -
Type of Diabetes: 2 requiring insulin
Pre-Admission Diabetes Regimen
Lab Results
Hemoglobin A1c Cancelled 12/20/24 22:26
Insulin Pump Settings
IP Diabetes Regimen
12/21/24 12/21/24 12/21/24
08:10 10:45 12:29
POC Glucose 219 H 211 H 151 H
12/21/24 12/21/24 12/21/24
16:18 21:23 22:35
POC Glucose 108 H 116 H 170 H
Patient Education
[2024-12-22] MEDS: NOVOLOG FLEXPEN-MODERATE RESISTANCE SC (08:18)
[2024-12-22] MEDS: PRISTIQ 100 MG PO (08:34)
[2024-12-22] MEDS: LOW STRENGTH ASPIRIN 81 MG PO (08:34)
[2024-12-22] MEDS: FARXIGA 10 MG PO (08:34)
[2024-12-22] MEDS: VIBRAMYCIN 100 MG PO (08:35)
[2024-12-22 08:48] LABS: Glucose - Point of Care 161 mg/dl (70-99)
[2024-12-22] MEDS: NOVOLOG FLEXPEN-LOW RESISTANCE 1 UNITS SC (08:49)
[2024-12-22] MEDS: NOVOLOG FLEXPEN 13 UNITS SC ×2 (08:49→12:31)
[2024-12-22 08:52] VITALS: BP 116/58; BP 140/78; BP 146/83; PULSE 84; PULSE 95
--- NOTE | 2024-12-22 11:21 | CM ---
Chart reviewed and correctional counselor/case manager met with patient this am, plan is to home with spouse when stable, patient made aware that she has switched to inpatient.
Plan; Home with spouse when stable.
[2024-12-22 12:06] LABS: Glucose - Point of Care 125 mg/dl (70-99)
[2024-12-22] MEDS: NOVOLOG FLEXPEN-LOW RESISTANCE SC (12:31)
--- NOTE | 2024-12-22 12:44 | W.PN.HOSP.TC ---
Today's Communication/Plan
-
dc
Assessment / Plan
Assessment / Plan
IMPRESSION:
51-year-old with history of asthma, insulin-dependent diabetes, morbid obesity, migraine headaches, RACHEL chronic lower extremity edema and hyperlipidemia presenting to the emergency department with uncontrolled blood glucose. She is hyperglycemic to
450s without any evidence of DKA. Blood gas is normal. He has no anion gap. There are no ketones in the urine. Beta hydroxy butyrate is negative. Hyperglycemia likely secondary to episode of sinusitis with use of steroids. She also did not
take her Tresiba last night. I suspect she is orthostatic secondary to dehydration from polyuria in the setting of hyperglycemia with ongoing Lasix use as well as dapagliflozin use. Large glucosuria in the urine noted. She has a positive viral
study vital signs in the ED consistent with her symptoms. No vertigo. No focal neurological deficits. She is afebrile here and with slight leukocytosis possibly secondary to steroid use but could be from the sinusitis. She is not wheezing
suggestive of any asthma exacerbation and she has no history of COPD or recurrent bronchitis.
PLAN:
Orthostatic Hypotension -suspect hypovolemic. No known history of valvular disease carotid stenosis, coronary artery disease or congestive heart failure
- Trop and BNP ok
- No extra renal losses
- Unclear if osmotic sec to hyperglycemia
- Resolved symptoms and neg ortho reads today
- Glycemia is better controlled
Hyperglycemia -DM2, steroid taper
- Hold steroid taper, patient does not have asthma exacerbation and has no history of COPD for which antibiotic plus steroid is appropriate but not for asthma
- Appreciate diabetic nurse practitioner input. Better glycemic control.
- Advised to use aspart with bkfast and lunch as well as dinner she was doing at home.
- Tresiba daily - dose decreased
- A1c 8.3
Sinusitis
-Continue doxycycline
-No role for steroids now
Asthma -clear lungs, no bronchospasm s.
-Use Advair for now
-Montelukast
-Albuterol as needed
RACHEL
-Continue home CPAP
DVT PPX - SCDs
Code status - full code
Medically stable for discharge home today
Total time of discharge 30
Anticipated Discharge: Today
Subjective/Interval History
-
Date of Service: December 22, 2024
Today she feels well.
Up and About without much dizziness. No orthostatic drop in blood pressure noted.
No polyphagia or polydipsia.
Denies any wheeze or shortness of breath. Feels nasally congested. No fever or chills. No chest pain.
Objective Data
-
Vital Signs:
Vital Signs
Temp Pulse Resp BP Pulse Ox
97.8 F 101 17 124/75 93
12/22/24 08:52 12/22/24 07:29 12/22/24 08:52 12/21/24 23:55 12/22/24 08:52
I&O
12/21/24 12/22/24 12/23/24
06:59 06:59 06:59
Intake Total 1999 480 / 480
Balance 1999 480 / 480
Physical Exam
-
General: No Apparent Distress
HEENT: Moist Mucous Membranes
Respiratory: Clear to Auscultation; Negative Wheezes
Cardiac: Regular Rhythm and S1/S2; Negative Tachycardic
GI: Soft
Neuro: AO x 3
Data Reviewed
-
Labs: Labs Reviewed by me
--- NOTE | 2024-12-22 14:41 | W.DCSUMMARY ---
Discharge Summary
Discharge Data
Date of Admission: 12/22/24
Date of Discharge: 12/22/24
-
Pending Results: No
Hospital Course
Primary diagnosis:
Hyperglycemia associated with steroid use
Acute sinusitis
Secondary diagnosis:
Diabetes mellitus type 2
Asthma
Obstructive sleep apnea on CPAP
Hospital course:
Patient was diagnosed with possible acute sinusitis as an outpatient and was prescribed doxycycline and Medrol Dosepak. She came in because her sugars were running very high into the 500s which is unusual for her. She had no DKA. She has got
history of diabetes mellitus type 2 and on Farxiga, Lantus at night, and then recently was introduced aspart at dinnertime. Hemoglobin A1c was 8.3. Suspect the blood sugars was elevated to steroid introduction for sinusitis. She has no evidence
of acute bronchospasm or asthma flare so stopped them. We increased the nutritional insulin to 3 times a day with better glycemic control and was discharged home. She was advised to continue and finish doxycycline as prescribed for sinusitis.
Discharge Plan
-
Patient Disposition: Home (Routine Discharge)
Discharge Diagnosis/Procedures: Hyperglycemia associated steroid use; diabetes mellitus type 2 with hemoglobin A1c 8.3
Condition: Fair
Diet: Diabetic, Carb Controlled
Activity: As tolerated
Driving Restrictions: As prior to admission
Bathing Restrictions: None
Referrals:
Carla Bai PA-C [Family Provider, Family Practice] - in less than 1 week
Prescriptions:
Continued
esomeprazole magnesium [Nexium] 40 MG capsule,delayed release(DR/EC)
40 mg PO QPM
furosemide [Lasix] 40 MG tablet
40 mg PO BID
montelukast [Singulair] 10 mg Tablet
10 mg PO QPM
ondansetron 8 mg Tablet,Disintegrating
8 mg PO Q8HPRN PRN (Reason: nausea/vomiting)
pravastatin 80 mg Tablet
80 mg PO QPM
Qulipta 60 mg Tablet
60 mg PO HS
dapagliflozin propanediol [Farxiga] 10 mg Tablet
10 mg PO DAILY
albuterol sulfate 90 mcg/actuation Hfa Aerosol Inhaler
2 puff INHALATION R Q4HPRN PRN (Reason: sob/wheezing)
cholecalciferol (vitamin D3) [Vitamin D3] 125 mcg (5,000 unit) Tablet
125 mcg PO DAILY
ibuprofen 200 mg Tablet
200 mg PO Q6H PRN (Reason: mild pain)
rizatriptan 10 mg Tablet,Disintegrating
0 mg PO .COMPLEX
Rx Instructions:
take 1 tab at onset of headache; if no relief may repeat 1 tab after at least 2 hrs; max = 3 tabs/24 hr
ezetimibe [Zetia] 10 mg Tablet
10 mg PO DAILY
Vraylar 1.5 mg Capsule
1.5 mg PO DAILY
aspirin 81 mg Tablet,Chewable
81 mg PO DAILY 30 Days Qty: 30 0RF
fexofenadine [Claudia Allergy] 180 mg Tablet
180 mg PO DAILY
doxycycline monohydrate 100 mg Capsule
100 mg PO BID
desvenlafaxine succinate [Pristiq] 100 mg Tablet Extended Release 24 Hr
100 mg PO DAILY
fluticasone propionate 50 mcg/actuation [place],Suspension
2 spray INTRANASAL BID
lorazepam 0.5 mg Tablet
0.5 mg PO BID PRN (Reason: severe anxiety)
Changed
insulin aspart U-100 [Novolog FlexPen U-100 Insulin] 100 unit/mL (3 mL) Insulin Pen
13 sliding scale dose SC AC Qty: 1 0RF
insulin glargine-yfgn [Semglee(insulin glargine-yfgn)] 100 unit/mL Solution
25 unit SC HS Qty: 0 0RF
Discontinued
methylprednisolone [Medrol (Eddie)] 4 mg Tablets,Dose Pack
4 mg PO DAILY
Discharge Orders:
Discharge Patient (As Directed); Ordered 12/22/24
Ordered By: Hakan Herndon
Discharge Date and Time
Discharge Date/Time: 12/22/24 14:02
Print Language: DANISH
== END 2024-12-22 14:02 | disposition home or self-care (01) | DRG 639 ==
LOC: 4 WEST ACU 07:37
PROVIDERS: Emergency Medicine; ADMITTING PHYSICIAN Internal Medicine; ATTENDING PHYSICIAN Internal Medicine; EMERGENCY PHYSICIAN Student in an Organized Health Care Education/Training Program; FAMILY PHYSICIAN Physician Assistant Medical
DX: E11.65 Type 2 diabetes mellitus with hyperglycemia (principal); I95.1 Orthostatic hypotension; G47.33 Obstructive sleep apnea (adult) (pediatric); J01.90 Acute sinusitis, unspecified; J45.909 Unspecified asthma, uncomplicated; Z79.4 Long term (current) use of insulin; Z87.891 Personal history of nicotine dependence; T38.0X5A Adverse effect of glucocorticoids and synthetic analogues, initial encounter; Y84.8 Other medical procedures as the cause of abnormal reaction of the patient, or of later complication, without mention of misadventure at the time of the procedure
CPT/HCPCS: 80048; 80053; 81003; 82010; 82805; 82962; 83036; 83880; 84484; 85025; 93005; 94640